=== PATIENT | female | born 1955 | race Caucasian/White ===

== ENCOUNTER → 2018-07-27 08:10 | Outpatient (CLI) | payer MEDICARE, OTHER, SELFPAY ==
--- NOTE | 2018-07-27 | DI.MG.S_ITS ---
BILATERAL DIGITAL SCREENING MAMMOGRAM 3D/2D WITH CAD: 07/27/2018 CLINICAL: Routine screening. Family history of breast cancer. Comparison is made to exams dated: 07/17/2017 mammogram, 07/06/2016 mammogram, and 12/02/2014 mammogram - [facility]. The tissue of both breasts is predominantly fatty. Current study was also evaluated with a Computer Aided Detection (CAD) system. No significant masses, calcifications, or other findings are seen in either breast. There has been no significant interval change. IMPRESSION: NEGATIVE There is no mammographic evidence of malignancy. A 1 year screening mammogram is recommended. This exam was interpreted at Station ID: [id number]. NOTE: For mammograms, a report in lay terms will be sent to the patient. Approximately 15% of breast malignancies will not be visualized mammographically. In the management of a palpable breast mass, a negative mammogram must not discourage biopsy of a clinically suspicious lesion. Electronically Signed By: Otilia gómez/bri:07/29/2018 08:18:49 letter sent: Normal Exam ACR BI-RADS Category 1: Negative [id number]
== END ==
PROVIDERS: Visit Provider Family Medicine
DX: Z12.31 Encounter for screening mammogram for malignant neoplasm of breast (principal); Z80.3 Family history of malignant neoplasm of breast
CPT/HCPCS: 77063; 77067

== ENCOUNTER → 2018-08-08 08:46 | Outpatient (CLI) | payer MEDICARE, OTHER, SELFPAY ==
[2018-08-08 09:13] LABS: Add Manual Diff / Slide Review NO; Basophils Percent Auto 0.5 % (0-2); Eosinophils Percent Auto 1.4 % (2-4); Hematocrit 39.3 % (36-46); Hemoglobin 13.3 g/dL (12.0-16.0); Lymphocytes Percent Auto 25.6 % (25-40); Mean Corpuscular HGB Conc 33.8 % (30-36); Mean Corpuscular Hemoglobin 29.4 PG (26-34); Monocytes Percent Auto 9.4 % (3-14); Neutrophils Absolute Auto 3500 /uL (3000-5900); Neutrophils Percent Auto 63.1 % (50-75); Platelet Count 233 X10^3/uL (150-400); Red Blood Cell Count 4.52 X10^6/uL (4.0-5.2); White Blood Cell Count 5.6 X10^3/uL (4.5-11.0)
[2018-08-08 09:30] LABS: Alanine Aminotransferase 60 IU/L (9-52); Albumin 4.4 g/dL (3.5-5.0); Albumin Globulin Ratio 1.4 (1.0-2.8); Alkaline Phosphatase 84 U/L (38-126); Aspartate Aminotransferase 49 IU/L (14-36); BUN Creatinine Ratio 25.6 (6-22); Bilirubin Total 0.9 mg/dL (0.2-1.3); Blood Urea Nitrogen 23 mg/dL (7-17); Calcium 9.9 mg/dL (8.4-10.2); Carbon Dioxide 28 mmol/L (22-32); Chloride 106 mmol/L (98-107); Cholesterol 148 mg/dL (140-199); Estimated Glomerular Filt Rate > 60.0 mL/min (>60); Globulin 3.1 g/dL (1.7-4.1); Glucose 101 mg/dL (80-110); HDL Cholesterol 64 mg/dL (40-60); HEMOLYSIS < 15 (0-50); LDL Cholesterol Calculated 68 mg/dL (<100); Potassium 4.7 mmol/L (3.4-5.1); Sodium 145 mmol/L (137-145); Total Protein 7.5 g/dL (6.3-8.2); Triglycerides 78 mg/dL (35-150)
[2018-08-08 09:33] LABS: Hemoglobin A1C% w Est Avg Glu 5.8 % (4.0-6.0)
[2018-08-08 09:44] LABS: Creatinine Urine Random 162.1 mg/dL
[2018-08-08 10:09] LABS: Microalbumi Creatinin Ratio Ur 3.7 ug/mg CR (<30); Microalbumin Urine Random < 0.6 mg/dL (0-1.6)
[2018-08-08 10:12] LABS: Thyroid Stimulating Hormone 3.82 uIU/mL (0.47-4.68)
== END ==
PROVIDERS: PCP Registered Nurse; Visit Provider Registered Nurse
DX: E66.9 Obesity, unspecified (principal); E78.2 Mixed hyperlipidemia; R06.02 Shortness of breath; I10 Essential (primary) hypertension
CPT/HCPCS: 36415; 80053; 80061; 82043; 82570; 83036; 84443; 85025

== ENCOUNTER → 2018-08-13 16:15 | Outpatient (CLI) | payer MEDICARE, OTHER, SELFPAY ==
--- NOTE | 2018-08-16 07:59 | PM.PFT.1 ---
Pulmonary Function Test Referral & Results Date Patient Seen: 08/13/18 Requesting provider: Ct Holloway Results: The spirometry demonstrates an FVC of 2.84 L which is 93% of predicted. The FEV1 was measured at 2.12 L which is 91% of predicted. The FEV1/FVC ratio was 70 for which is 96% of predicted. Following the administration of bronchodilator there was no appreciable change. Lung volumes show an SVC of 3.04 L which is 106% of predicted. The diffusing capacity was measured at 22.96 which is 100% of predicted. The maximum voluntary ventilation was normal Interpretation: This study demonstrates probably normal pulmonary function. There is very minimal reduction in FEV1 and a very minimal curve to the flow volume loop suggesting at worst extremely mild obstructive lung disease. Clinical correlation suggested
== END ==
PROVIDERS: PCP Registered Nurse; Visit Provider Registered Nurse
DX: R06.02 Shortness of breath (principal)
CPT/HCPCS: 94010; 94060; 94726; 94729

== ENCOUNTER → 2018-08-28 08:12 | Outpatient (CLI) | payer MEDICARE, OTHER, SELFPAY ==
--- NOTE | 2018-08-28 08:14 | DI.NM.S_ITS ---
PROCEDURE: NM FRANK PERF SPECT REST & STR Rest and exercise myocardial perfusion SPECT with gated imaging and ejection fraction RADIOPHARMACEUTICAL: 27.2 mCi Tc-99m sestamibi IV at rest and 24.8 mCi Tc-99m sestamibi IV at peak exercise. A two day-protocol was performed. INDICATIONS: dyspnea on exertion TECHNIQUE: Radiopharmaceutical was injected at peak stress test, and also at rest. SPECT images were obtained. SPECT myocardial perfusion images were displayed in short axis, horizontal long axis, and vertical long axis views. Gated images were reviewed using [employer]ogolf[employer] software. COMPARISON: None. CARDIAC STRESS: A standard Paulo treadmill exercise tolerance test was performed by the patient under the supervision of an attending staff. The patient exercised for 4 minutes and 10 seconds reaching 7.0 METs; functional aerobic impairment (LUIS) is +18%. Hemodynamic data: There is normal blood pressure and heart rate response to exercise stress. Patient achieved 100% of maximum predicted heart rate at peak exercise. Symptoms: Patient denied chest pain during exercise. Study ended due to dyspnea. EKG: No diagnostic EKG changes of ischemia; no ectopy. FINDINGS: Raw data: There is good myocardial labeling by radiotracer. No significant motion artifacts. Degq-gv-slqnk ratio is 0.34 (normal is less than 0.38 for sestamibi tracer, and less than 0.50 for thallium tracer). Left ventricle function: Gated images demonstrate normal left ventricle wall thickening. No segmental wall motion abnormality. No transient ischemic dilation; TID is 0.91 (normal less than 1.3). The left ventricle resting end-diastolic volume is 66 mL. Left ventricle stress ejection fraction is 88%; normal values are above 45%. Myocardial perfusion: There is normal distribution of activity in the left and right ventricular myocardium. No fixed or reversible perfusion defects. IMPRESSION: Low risk, normal treadmill nuclear stress test. 1) No perfusion evidence of ischemia or infarction. 2) Normal left ventricular size, wall motion, and systolic function (EF 88%). 3) No ECG evidence of ischemia. 4) No angina during the study. Study ended due to dyspnea. 5) Below average exercise capacity (7.0 METs, LUIS +18%). Target heart rate achieved. Appropriate blood pressure response to exercise. 6) No prior nuclear stress test available for comparison. Dictated by: Zia Barrios MD on 08/29/2018 at 18:57 Approved by: Zia Barrios MD on 08/29/2018 at 19:00
--- NOTE | 2018-08-28 08:14 | DI.ECHO.S_ITS ---
[facility] +---------+ : : [address] : : : : [id number] : : : : Phone: [phone] Echocardiogram Report + + :Name: AMANDA KIMBLE Study Date: 08/28/2018 Height: 63 in : :[facility] Weight: 221 lb : : Gender: Female BSA: 2.0 m2 : :: 1955 Age: 63 yrs BP: 124/78 mmHg: :Reason For Study: Dyspnea : : Performed By: Amy Russell : :Referring: CORINA BUENO : + + Interpretation Summary The left ventricle is normal in size. Left ventricular wall thickness is borderline increased. The ejection fraction is estimated to be 60-65%. Left ventricular wall motion is normal. The right ventricle grossly appears normal in size with visually normal systolic function. No significant valvular abnormalities. -Overall this echo shows normal biventricular function and no significant valvular abnormalities. The etiology of dyspnea can not be determined based on this echo. -No prior echos for comparison. Procedure: A two-dimensional transthoracic echocardiogram with color flow and Doppler was performed. The study quality was technically good. There is no prior echocardiogram noted for this patient. The patient was in normal sinus rhythm during the exam. Left Ventricle: The left ventricle is normal in size. Left ventricular wall thickness is borderline increased. The ejection fraction is estimated to be 60-65%. Left ventricular wall motion is normal. Diastolic parameters suggest a relaxation abnormality of the left ventricle, consistent with probable normal filling pressures. Right Ventricle: The right ventricle grossly appears normal in size with probable normal systolic function. Atria: The left atrial size is normal. Right atrial size is normal. The interatrial septum is intact with no evidence for an atrial septal defect. Mitral Valve: The mitral valve is normal in structure and function. There is no mitral regurgitation noted. Aortic Valve: The aortic valve is trileaflet. The aortic valve opens well. There is no aortic valve stenosis. No aortic regurgitation is present. Tricuspid Valve: The tricuspid valve is normal in structure and function. There is a trace or physiologic amount of tricuspid regurgitation. Pulmonary artery pressures cannot be estimated because of the lack of a measurable TR jet velocity but the IVC suggests a CVP of around 3 mmHg. Pulmonic Valve: The pulmonic valve is not well seen, but is grossly normal. There is trace pulmonic regurgitation. Great Vessels: The aortic root is normal size. The dimensions of the ascending aorta are normal. The IVC is of normal diameter and collapses greater than 50% with a sniff. This suggests a low right atrial pressure of 3 mm Hg. Pericardium/ Pleura There is no pericardial effusion. There is no pleural effusion. MMode/2D Measurements & Calculations LVIDd: 4.5 cm Ao root diam: 3.3 cm LVIDs: 2.9 cm Aortic Jxn: 2.9 cm FS: 35.2 % asc Aorta Diam: 3.3 cm EPSS: 0.67 cm Ao Arch Diam (Prox Trans): 2.6 cm IVSd: 0.88 cm LVPWd: 0.81 cm LV cox. diameter/BSA (cm/m^2): 2.2 LV sys. diameter/BSA (cm/m^2): 1.4 LA dimension: 3.4 cm RA long axis: 5.0 cm LA A2 area: 18.9 cm2 RA area: 16.8 cm2 LA A4 area: 22.6 cm2 RA vol: 47.8 ml LA length (vol): 5.7 cm RA : 23.7 ml/m2 LA vol: 63.3 ml IVC diam: 1.3 cm LA vol index: 31.4 ml/m2 RVDd major: 4.5 cm RVD1 (basal): 2.8 cm RVD2 (mid): 2.2 cm Doppler Measurements & Calculations Ao V2 max: 149.4 cm/sec MV E max alan: 89.1 cm/sec Ao V2 mean: 93.5 cm/sec MV A max alan: 107.6 cm/sec Ao max P.9 mmHg MV E/A: 0.83 Ao mean P.1 mmHg Med Peak E' Alan: 7.8 cm/sec Ao V2 VTI: 30.6 cm E/E' med: 11.4 Lat Peak E' Alan: 9.1 cm/sec E/E' lat: 9.8 E/e' average: 10.6 MV dec time: 0.22 sec MV P1/2t: 65.5 msec TR max alan: 251.9 cm/sec MV P1/2t max alan: 88.6 cm/sec TR max P.4 mmHg MVA(P1/2t): 3.4 cm2 PA V2 max: 95.3 cm/sec PA V2 mean: 59.2 cm/sec PA mean P.7 mmHg PA Accel Time: 0.11 sec Electronically signed by: Vishnu Mir M.D. on Reading Physician:08/28/2018 08:01 PM
--- NOTE | 2018-08-28 09:27 | PM.TREADMILL ---
Cardiac Stress Test Report Referral & Results Date Patient Seen: 08/28/18 Requesting provider: Ct Holloway Indication: Dyspnea upon exertion Rest ECG: Unremarkable Procedure Note: Today following both written and verbal informed consent the patient was exercised according to a standard Paulo protocol patient went for a total of 4 min 10 sec achieving a maximum heart rate of 155 maximum systolic blood pressure of 160. This is approximately 7.0 METS. Exercise was terminated at this point because of 3+ dyspnea. Patient was also given Cardiolite through a previously started Hep-Lock IV by the mold maintenance technician approximately 1 minute prior to the cessation of exercise. There were no ST-T segment changes Somewhat blunted blood pressure response Normal heart rate response Single PVC identified in recovery Oxygen saturation dropped somewhat at 88-90% range or so with activity Functional aerobic impairment rated about percent on the sedentary scale Impression: No evidence of ischemia Mild hypoxia identified Perfusion imaging will be reported separately Please note: Actual ECG tracings can be found in the PACS system.
== END ==
PROVIDERS: PCP Registered Nurse; Visit Provider Registered Nurse
DX: R06.09 Other forms of dyspnea (principal); R09.02 Hypoxemia
CPT/HCPCS: 78452; 93016; 93017; 93018; 93306; A9502

== ENCOUNTER → 2018-09-05 10:53 | Outpatient (CLI) | payer MEDICARE, OTHER, SELFPAY ==
[2018-09-05 12:34] LABS: Alanine Aminotransferase 29 IU/L (9-52); Albumin 4.8 g/dL (3.5-5.0); Albumin Globulin Ratio 1.6 (1.0-2.8); Alkaline Phosphatase 63 U/L (38-126); Aspartate Aminotransferase 30 IU/L (14-36); BUN Creatinine Ratio 25.6 (6-22); Bilirubin Total 0.9 mg/dL (0.2-1.3); Blood Urea Nitrogen 23 mg/dL (7-17); Calcium 9.8 mg/dL (8.4-10.2); Carbon Dioxide 28 mmol/L (22-32); Chloride 98 mmol/L (98-107); Estimated Glomerular Filt Rate > 60.0 mL/min (>60); Glucose 85 mg/dL (80-110); HEMOLYSIS < 15 (0-50); Potassium 3.9 mmol/L (3.4-5.1); Sodium 140 mmol/L (137-145); Total Protein 7.8 g/dL (6.3-8.2)
== END ==
PROVIDERS: PCP Registered Nurse; Visit Provider Registered Nurse
DX: I10 Essential (primary) hypertension (principal)
CPT/HCPCS: 80053

== ENCOUNTER 2018-09-05 19:36 | Emergency (ER) | payer MEDICARE, OTHER, SELFPAY ==
[2018-09-05 19:47] VITALS: BP 163/93; PULSE 91; RESP 17; TEMP 36.4; O2SAT 100; BMI 36.3
--- NOTE | 2018-09-05 19:57 | DI.CT.S_ITS ---
PROCEDURE: CT ANGIO CHEST PE PROTOCOL INDICATIONS: Shortness of breath with exertion TECHNIQUE: After the administration of intravenous contrast, 2 mm thick sections acquired from the pulmonary apices to the posterior costophrenic angles. 3-dimensional maximum intensity projection (MIP) coronal and sagittal reformats were then acquired through the thorax. For radiation dose reduction, the following was used: automated exposure control, adjustment of mA and/or kV according to patient size. COMPARISON: [facility], , CHEST 2 VIEW, 01/28/2015, 14:06. FINDINGS: Image quality: Excellent. Pulmonary arteries: Pulmonary arteries are normal in size, and demonstrate no intraluminal filling defects to suggest central pulmonary embolism. Lungs and pleura: Lungs are clear. No pleural effusions or pneumothorax. Central and peripheral airways are patent. Mediastinum: Heart size is normal, without pericardial effusion. No mediastinal or hilar adenopathy. Thoracic aorta is normal in caliber and enhancement. Esophagus is normal in caliber, without hiatal hernia. Bones and chest wall: No suspicious bony lesions. Ribs and thoracic spine appear intact throughout. Thyroid gland is unremarkable. No axillary or supraclavicular adenopathy. Abdomen: Visualized upper abdominal solid organs appear normal in the early arterial phase of enhancement. IMPRESSION: 1. No pulmonary embolism. 2. Lungs are clear. Dictated by: Linh Reilly M.D. on 09/05/2018 at 20:51 Approved by: Linh Reilly M.D. on 09/05/2018 at 20:53
--- NOTE | 2018-09-05 20:06 | ED_ITS ---
HPI - Chest Pain General Chief Complaint: Chest Pain Stated Complaint: SOB and chest pain Time Seen by Provider: 09/05/18 19:45 Source: patient and old records reviewed Mode of arrival: ambulatory Limitations: no limitations History of Present Illness HPI narrative: The patient is a 63-year-old female presenting with shortness of breath. She has increased dyspnea with exertion ongoing for the last 2 weeks. She has been seen by her primary care provider started on hydrochlorothiazide she has had a pulmonary function test the past and nuclear stress test all of which have been negative. She denies fever chills. She has a nonproductive cough. She denies any recent travel although she is supposed to be leaving for [place] next week. She feels it hurts when she takes a breath and she can 't get a deep breath. His she quit smoking back in 1997. MD complaint: other (Dyspnea) Related Data Home Medications Medication Instructions Recorded Confirmed ascorbate calcium 500 mg tablet 500 mg PO DAILY 08/13/18 08/27/18 cholecalciferol (vitamin D3) PO 08/13/18 08/27/18 coq10 PO 08/13/18 08/27/18 garcinea cambogia PO 08/13/18 08/27/18 Previous Rx's Medication Instructions Recorded varicella-zoster gE-AS01B (PF) 0.5 ml IM SEE INSTRUCTIONS #1 ea 02/14/18 [Shingrix (PF)] hydrochlorothiazide 25 mg tablet 25 mg PO DAILY #90 tab 08/13/18 lisinopril 20 mg tablet 20 mg PO QDAY #90 tab 08/13/18 metoprolol succinate ER 25 mg 25 mg PO QDAY #90 tab 08/13/18 tablet,extended release 24 hr salmeterol 50 mcg/dose blister 1 inhalation INHALATION BID #60 09/03/18 powder for inhalation each albuterol sulfate 1 puff INHALATION Q4-6H PRN #8 gram 09/05/18 Allergies Allergy/AdvReac Type Severity Reaction Status Date / Time cat dander [CAT DANDER] Allergy Mild EYES SWELL Verified 09/05/18 19:47 SHUT Review of Systems Review of Systems All systems reviewed & are unremarkable except as noted in HPI and below Constitutional Denies chills, Denies fever(s), Denies lethargy, Denies weakness and Reports weight loss (10 pounds over 3 weeks started on hydrochlorothiazide) Eyes Denies change in vision, Denies eye discharge, Denies irritation and Denies loss of vision Cardiovascular Denies chest pain, Denies pedal edema, Denies irregular heart rhythm, Denies lightheadedness, Denies palpitations, Reports dyspnea, Reports dyspnea on exertion and Denies orthopnea Respiratory Reports as per HPI, Denies change in phlegm color, Reports dyspnea and Reports dyspnea on exertion Gastrointestinal Gastrointestinal: Denies abdominal pain, Denies change in bowel habits, Denies diarrhea, Denies nausea and Denies vomiting Musculoskeletal Denies back pain, Denies muscle weakness, Denies numbness and Denies tingling Integumentary/Breasts Denies pruritus, Denies erythema, Denies rash and Denies wounds Neurologic Denies loss of vision, Denies numbness, Denies tingling and Denies weakness Endocrine Denies palpitations [facility] Medical History Cervical spine disease (Chronic) Chronic back pain (Chronic) Chronic headaches (Chronic) Hypertension (Chronic 2003) Migraines (Chronic) Abnormal Pap smear of cervix (Resolved 1994) Colon polyps (Resolved 2005) HPV (human papilloma virus) infection (Resolved 1994) SCC (squamous cell carcinoma), lip (Resolved 2008) Surgical History Anesthesia (Resolved) History of colonoscopy (Resolved 2010) History of cone biopsy of uterine cervix (Resolved 1994) History of squamous cell carcinoma excision (Resolved 2008) History of tonsillectomy (Resolved 1982) Status post breast biopsy (Resolved 1996) Status post hysterectomy with oophorectomy (Resolved 2002) Family History Grandmother Cancer Colon cancer Brother Diabetes mellitus Cystic fibrosis gene carrier Cystic fibrosis Father Prostate cancer Stroke Dysphagia Grandfather Heart disease Grandmother Heart disease Mother Cancer Uterine cancer Adenocarcinoma, lung Grandfather Stroke Sister Cystic fibrosis Cystic fibrosis gene carrier Social History Smoking Status: Former smoker Exam Initial Vital Signs Initial Vital Signs: Vital Signs Temperature 97.5 F L 09/05/18 19:47 Pulse Rate 91 H 09/05/18 19:47 Respiratory Rate 17 09/05/18 19:47 Blood Pressure 163/93 H 09/05/18 19:47 Pulse Oximetry 100 09/05/18 19:47 GENERAL: Well-appearing, well-nourished and in no acute distress. HEENT: Head atraumatic,EOMI, pupils reactive, face symmetric, moist mucous membranes CARDIOVASCULAR: Regular rate and rhythm without murmurs, rubs or gallops. RESPIRATORY: Breath sounds equal bilaterally, no wheezes rales or rhonchi. ABDOMEN: Soft, nontender. Normoactive bowel sounds all 4 quadrants. No guarding or rebound. EXTREMITIES: Normal range of motion, no clubbing or edema. Neurovascularly intact NEUROLOGICAL: Alert and oriented x4.Normal gait and speech. Cranial nerves II through XII grossly intact. SKIN: Warm, dry, no laceration, no petechiae, no rashes or lesions. Course Orders Ordered: ED Orders 09/05/18 19:44 B Type Natriuretic Peptide Stat Complete Blood Count AUTO DIFF Stat Comprehensive Metabolic Panel Stat Magnesium Stat Partial Thromboplastin Time Stat Prothrombin Time INR Stat Troponin & CK Cardiac Panel Stat 09/05/18 19:56 Consult to Respiratory Therapy Evaluate & Treat 09/05/18 19:57 CT angio chest PE protocol Stat Discontinued Medications Albuterol (Ventolin Hfa Prepack) 1 box MISC SEEINSTR ONE Stop: 09/05/18 21:23 Last Admin: 09/05/18 21:26 Dose: 1 box Albuterol/Ipratropium (Duoneb) 3 ml INH NOW ONE Stop: 09/05/18 20:59 Last Admin: 09/05/18 21:16 Dose: 3 ml Vital Signs - 8 hr 09/05/18 19:47 09/05/18 20:30 09/05/18 21:16 Temperature 97.5 F L Pulse Rate 91 H 84 76 Respiratory Rate 17 20 16 Blood Pressure 163/93 H Blood Pressure [Left Arm] 139/72 Pulse Oximetry 100 100 100 09/05/18 21:44 Temperature 97.6 F Pulse Rate 81 Respiratory Rate 20 Blood Pressure 123/82 Blood Pressure [Left Arm] Pulse Oximetry 96 MDM - Chest Pain Lab Data Attestation: I reviewed the patient's lab results. Result diagrams: 09/05/18 19:44 09/05/18 19:44 Lab Results 09/05/18 09/05/18 09/05/18 Range/Units 19:44 19:44 19:44 WBC 9.2 (4.5-11.0) X10^3/uL RBC 4.80 (4.0-5.2) X10^6/uL Hgb 13.6 (12.0-16.0) g/dL Hct 41.7 (36-46) % MCV 86.9 (80-100) fL MCH 28.4 (26-34) PG MCHC 32.7 (30-36) % RDW 13.8 (11.6-14.8) % Plt Count 232 (150-400) X10^3/uL Neut % (Auto) 56.4 (50-75) % Lymph % (Auto) 32.3 (25-40) % Bullitt % (Auto) 9.5 (3-14) % Eos % (Auto) 0.9 L (2-4) % Baso % (Auto) 0.9 (0-2) % Neut # (Auto) 5200 (6478-6691) /uL PT 11.1 (10.1-12.7) SECONDS INR 1.0 (0.9-1.3) APTT 29 (26.4-36.2) SECONDS Sodium 139 (137-145) mmol/L Potassium 3.5 (3.4-5.1) mmol/L Chloride 101 (98-107) mmol/L Carbon Dioxide 22 (22-32) mmol/L BUN 31 H (7-17) mg/dL Creatinine 1.00 (0.52-1.04) mg/dL Estimated GFR 55.6 L (>60) mL/min BUN/Creatinine Ratio 31.0 H (6-22) Glucose 102 (80-110) mg/dL Calcium 10.1 (8.4-10.2) mg/dL Magnesium 2.3 (1.6-2.3) mg/dL Total Bilirubin 0.6 (0.2-1.3) mg/dL AST 31 (14-36) IU/L ALT 33 (9-52) IU/L Alkaline Phosphatase 82 (38-126) U/L Total Creatine Kinase 95 (30-135) U/L CK-MB (CK-2) TNP CK-MB (CK-2) Rel Index TNP Troponin I < 0.012 (0.01-0.034) ng/mL B-Natriuretic Peptide < 29.6 (<100) Total Protein 8.0 (6.3-8.2) g/dL Albumin 4.8 (3.5-5.0) g/dL Globulin 3.2 (1.7-4.1) g/dL Albumin/Globulin Ratio 1.5 (1.0-2.8) Imaging Data CT PE: Radiologist's impression: PROCEDURE: CT ANGIO CHEST PE PROTOCOL INDICATIONS: Shortness of breath with exertion TECHNIQUE: After the administration of intravenous contrast, 2 mm thick sections acquired from the pulmonary apices to the posterior costophrenic angles. 3-dimensional maximum intensity projection (MIP) coronal and sagittal reformats were then acquired through the thorax. For radiation dose reduction, the following was used: automated exposure control, adjustment of mA and/or kV according to patient size. COMPARISON: [facility], CHEST 2 VIEW, 01/28/2015, 14:06. FINDINGS: Image quality: Excellent. Pulmonary arteries: Pulmonary arteries are normal in size, and demonstrate no intraluminal filling defects to suggest central pulmonary embolism. Lungs and pleura: Lungs are clear. No pleural effusions or pneumothorax. Central and peripheral airways are patent. Mediastinum: Heart size is normal, without pericardial effusion. No mediastinal or hilar adenopathy. Thoracic aorta is normal in caliber and enhancement. Esophagus is normal in caliber, without hiatal hernia. Bones and chest wall: No suspicious bony lesions. Ribs and thoracic spine appear intact throughout. Thyroid gland is unremarkable. No axillary or supraclavicular adenopathy. Abdomen: Visualized upper abdominal solid organs appear normal in the early arterial phase of enhancement. IMPRESSION: 1. No pulmonary embolism. 2. Lungs are clear. Dictated by: Linh Reilly M.D. on 09/05/2018 at 20:51 Echocardiogram 08/28/18: Radiologist's impression: Name: AMANDA KIMBLE Study Date: 2017 Height: 63 in : :[facility] Weight: 221 lb : : Gender: Female BSA: 2.0 m2 : :: 1955 Age: 63 yrs BP: 124/78 mmHg: :Reason For Study: Dyspnea : : Performed By: Amy Russell : :Referring: CORINA BUENO : + + Interpretation Summary The left ventricle is normal in size. Left ventricular wall thickness is borderline increased. The ejection fraction is estimated to be 60-65%. Left ventricular wall motion is normal. The right ventricle grossly appears normal in size with visually normal systolic function. No significant valvular abnormalities. -Overall this echo shows normal biventricular function and no significant valvular abnormalities. The etiology of dyspnea can not be determined based on this echo. -No prior echos for comparison. Myocardial perfusion scan 08/28/18: Radiologist's impression: IMPRESSION: Low risk, normal treadmill nuclear stress test. 1) No perfusion evidence of ischemia or infarction. 2) Normal left ventricular size, wall motion, and systolic function (EF 88%). 3) No ECG evidence of ischemia. 4) No angina during the study. Study ended due to dyspnea. 5) Below average exercise capacity (7.0 METs, LUIS +18%). Target heart rate achieved. Appropriate blood pressure response to exercise. 6) No prior nuclear stress test available for comparison. Dictated by: Zia Barrios MD on 08/29/2018 at 18:57 ECG Data Attestation: I personally reviewed and interpreted this ECG as follows: Prior ECG tracings: not available for review Interpretation: Sinus rhythm rate 89 T-wave inversions noted in V3 and V6 MDM Narrative Medical decision making narrative: The patient had an albuterol treatment. She feels slightly better. She was more anxious that she may have lung cancer like her mother did. His she has had a full workup within 1 week. Possible pleurisy , versus reactive airway disease, possible pulmonary hypertension. Recommend further outpatient workup I discussed all findings with the patient and spouse, Education has been performed regarding treatment plan, diagnosis, warning signs and symptoms and all concerns have been addressed. Verbally agree with and understood all of the above. Discharge Plan Departure Patient Disposition: Home Clinical Impression: Exacerbation of reactive airway disease Discharge Date/Time: 09/05/18 21:45 Interventions: ED Discharge Assessment Last Done: 09/05/18 21:44 Instructions: DI for Reactive Airway Disease-Adult Activity Restrictions/Additional Instructions: *You have been diagnosed with reactive airway *What to do: Blood work today is again reassuring. CT scan of the chest did not show any masses or blood clot. *Continue to take medications as directed Albuterol inhaler 2 puffs every 4 hr if needed for chest tightness or shortness of breath *Follow up with your primary care provider in 2-3 days *Return to ER if you should have chest pain, worse shortness of breath or any new, worsening or concerning symptoms Prescriptions: New albuterol sulfate 90 mcg/actuation HFA aerosol inhaler 1 puff INHALATION Q4-6H PRN (Reason: wheezing) Qty: 8 RF: 0 No Action varicella-zoster gE-AS01B (PF) [Shingrix (PF)] 50 MCG/0.5 ML suspension for reconstitution 0.5 ml IM SEE INSTRUCTIONS Qty: 1 RF: 1 salmeterol [Serevent Diskus] 50 mcg/dose blister with device 1 inhalation INHALATION BID Qty: 60 RF: 0 coq10 PO RF: 0 ascorbate calcium 500 mg tablet 500 mg PO DAILY RF: 0 cholecalciferol (vitamin D3) PO RF: 0 garcinea cambogia PO RF: 0 lisinopril 20 mg tablet 20 mg PO QDAY Qty: 90 RF: 3 hydrochlorothiazide 25 mg tablet 25 mg PO DAILY Qty: 90 RF: 2 metoprolol succinate [Toprol XL] 25 mg tablet extended release 24 hr 25 mg PO QDAY Qty: 90 RF: 3
[2018-09-05 20:09] LABS: Add Manual Diff / Slide Review NO; Basophils Percent Auto 0.9 % (0-2); Eosinophils Percent Auto 0.9 % (2-4); Hematocrit 41.7 % (36-46); Hemoglobin 13.6 g/dL (12.0-16.0); Lymphocytes Percent Auto 32.3 % (25-40); Mean Corpuscular HGB Conc 32.7 % (30-36); Mean Corpuscular Hemoglobin 28.4 PG (26-34); Mean Corpuscular Volume 86.9 fL (80-100); Monocytes Percent Auto 9.5 % (3-14); Neutrophils Absolute Auto 5200 /uL (3000-5900); Neutrophils Percent Auto 56.4 % (50-75); Platelet Count 232 X10^3/uL (150-400); Red Cell Distribution Width 13.8 % (11.6-14.8); White Blood Cell Count 9.2 X10^3/uL (4.5-11.0)
[2018-09-05 20:15] LABS: Prothrombin Time 11.1 SECONDS (10.1-12.7)
[2018-09-05 20:18] LABS: Alanine Aminotransferase 33 IU/L (9-52); Albumin 4.8 g/dL (3.5-5.0); Albumin Globulin Ratio 1.5 (1.0-2.8); Alkaline Phosphatase 82 U/L (38-126); Aspartate Aminotransferase 31 IU/L (14-36); Bilirubin Total 0.6 mg/dL (0.2-1.3); Blood Urea Nitrogen 31 mg/dL (7-17); Calcium 10.1 mg/dL (8.4-10.2); Carbon Dioxide 22 mmol/L (22-32); Chloride 101 mmol/L (98-107); Creatine Kinase 95 U/L (30-135); Estimated Glomerular Filt Rate 55.6 mL/min (>60); Globulin 3.2 g/dL (1.7-4.1); Glucose 102 mg/dL (80-110); HEMOLYSIS 17 (0-50); Magnesium 2.3 mg/dL (1.6-2.3); PTT Partial Thromboplastin Tim 29 SECONDS (26.4-36.2); Potassium 3.5 mmol/L (3.4-5.1); Sodium 139 mmol/L (137-145)
[2018-09-05 20:29] LABS: Troponin I < 0.012 ng/mL (0.01-0.034)
[2018-09-05 20:30] VITALS: BP 139/72; PULSE 84; RESP 20; O2SAT 100
[2018-09-05 20:32] LABS: B Type Natriuretic Peptide < 29.6 (<100)
[2018-09-05 21:16] VITALS: PULSE 76; RESP 16; O2SAT 100
[2018-09-05] MEDS: ALBUTEROL/IPRATROPIUM 3 ML AMPUL INH (21:16)
[2018-09-05] MEDS: ALBUTEROL HFA PREPACK 1 BOX MISC (21:26)
[2018-09-05 21:44] VITALS: BP 123/82; PULSE 81; RESP 20; TEMP 36.4; O2SAT 96
== END 2018-09-05 21:45 | disposition home or self-care (01) ==
PROVIDERS: Emergency Provider Emergency Medicine; PCP Registered Nurse
DX: J45.901 Unspecified asthma with (acute) exacerbation (principal); R07.89 Other chest pain; I10 Essential (primary) hypertension
CPT/HCPCS: 36591; 71275; 80053; 82550; 83735; 83880; 84484; 85025; 85610; 85730; 93005; 94640; 99282; 99285; Q9967

== ENCOUNTER → 2018-11-26 09:46 | Outpatient (CLI) | payer MEDICARE, OTHER, SELFPAY ==
[2018-11-26 10:31] LABS: Alanine Aminotransferase 53 IU/L (9-52); Albumin 4.7 g/dL (3.5-5.0); Albumin Globulin Ratio 1.3 (1.0-2.8); Alkaline Phosphatase 103 U/L (38-126); Aspartate Aminotransferase 39 IU/L (14-36); BUN Creatinine Ratio 22.2 (6-22); Bilirubin Total 0.8 mg/dL (0.2-1.3); Blood Urea Nitrogen 20 mg/dL (7-17); Calcium 10.2 mg/dL (8.4-10.2); Carbon Dioxide 29 mmol/L (22-32); Chloride 101 mmol/L (98-107); Cholesterol 197 mg/dL (140-199); Estimated Glomerular Filt Rate > 60.0 mL/min (>60); Globulin 3.5 g/dL (1.7-4.1); Glucose 104 mg/dL (80-110); HDL Cholesterol 69 mg/dL (40-60); HEMOLYSIS < 15 (0-50); LDL Cholesterol Calculated 114 mg/dL (<100); Potassium 3.8 mmol/L (3.4-5.1); Sodium 139 mmol/L (137-145); Total Protein 8.2 g/dL (6.3-8.2); Triglycerides 69 mg/dL (35-150)
== END ==
PROVIDERS: Family Provider Registered Nurse; PCP Registered Nurse; Visit Provider Registered Nurse
DX: I10 Essential (primary) hypertension (principal); E78.5 Hyperlipidemia, unspecified
CPT/HCPCS: 36415; 80053; 80061

== ENCOUNTER 2019-01-28 11:53 | Day surgery (SDC) | payer MEDICARE, OTHER, SELFPAY ==
[2019-01-28] VITALS (8 sets, daily range): BP systolic 96–127; BP diastolic 62–75; PULSE 59–82; RESP 12–20; TEMP 36.3–36.7; O2SAT 95–99
[2019-01-28] MEDS: SODIUM CHLORIDE 0.9% 1,000 ML 100 ML IV (12:11)
--- NOTE | 2019-01-28 13:16 | PM.HP.1 ---
History of Present Illness Date Patient Seen: 01/28/19 Time Patient Seen: 13:16 Chief complaint: [id number] Colonoscopy Narrative: Very pleasant 63-year-old lady who presents for screening colonoscopy. She reports that her last colonoscopy was 2010. At that time she did not have any polyps but in 2004 she had a colonoscopy and did have a couple benign polyps. She denies any new problems or symptoms related to the function of her GI tract. She reports that she has in her usual state of health. She has had some difficulty recently with asthma and has been seeing chief development officer. She denies any difficulty breathing today. Patient History Medical History Cervical spine disease (Chronic) Chronic back pain (Chronic) Chronic headaches (Chronic) Hypertension (Chronic 2003) Migraines (Chronic) Abnormal Pap smear of cervix (Resolved 1994) Colon polyps (Resolved 2005) HPV (human papilloma virus) infection (Resolved 1994) SCC (squamous cell carcinoma), lip (Resolved 2008) Surgical History Anesthesia (Resolved) History of colonoscopy (Resolved 2010) History of cone biopsy of uterine cervix (Resolved 1994) History of squamous cell carcinoma excision (Resolved 2008) History of tonsillectomy (Resolved 1982) Status post breast biopsy (Resolved 1996) Status post hysterectomy with oophorectomy (Resolved 2002) Family History Grandmother Cancer Colon cancer Brother Diabetes mellitus Cystic fibrosis gene carrier Cystic fibrosis Father Prostate cancer Stroke Dysphagia Grandfather Heart disease Grandmother Heart disease Mother Cancer Uterine cancer Adenocarcinoma, lung Grandfather Stroke Sister Cystic fibrosis Cystic fibrosis gene carrier Social History household members: spouse Smoking Status: Former smoker alcohol intake: current (occasionally) substance use type: does not use Family & Social History Family History Grandmother Cancer Colon cancer Brother Diabetes mellitus Cystic fibrosis gene carrier Cystic fibrosis Father Prostate cancer Stroke Dysphagia Grandfather Heart disease Grandmother Heart disease Mother Cancer Uterine cancer Adenocarcinoma, lung Grandfather Stroke Sister Cystic fibrosis Cystic fibrosis gene carrier Social History: household members spouse Tobacco & Substance use: Smoking Status Former smoker alcohol intake current alcohol intake frequency 0-2 drinks per day Substance Use Type does not use Meds Home Medications Medication Instructions Recorded Confirmed Type ascorbate calcium 500 mg tablet 500 mg PO DAILY 08/13/18 11/27/18 History cholecalciferol (vitamin D3) PO 08/13/18 11/27/18 History hydrochlorothiazide 25 mg tablet 25 mg PO DAILY #90 tab 08/13/18 11/27/18 Rx lisinopril 20 mg tablet 20 mg PO QDAY #90 tab 08/13/18 11/27/18 Rx albuterol sulfate 1 puff INHALATION Q4-6H PRN #8 gram 09/05/18 11/27/18 Rx metoprolol succinate ER 25 mg 12.5 mg PO QDAY tab 09/06/18 11/27/18 History tablet,extended release 24 hr Allergies Allergy/AdvReac Type Severity Reaction Status Date / Time cat dander [CAT DANDER] Allergy Mild EYES SWELL Verified 11/27/18 08:30 SHUT Review of Systems Review of Systems All systems reviewed & are unremarkable except as noted in HPI and below Exam Vital Signs (past 8 hours): - 01/28/19 12:14 Temperature 98 F Pulse Rate 82 Respiratory Rate 20 Blood Pressure 127/75 Pulse Oximetry 99 Oxygen Delivery Method Room Air Narrative Exam Narrative: Very pleasant well-nourished well-developed lady in no obvious distress HEENT: Normocephalic and atraumatic, pupils equal round react light accommodation with anicteric sclera lungs: Clear to auscultation bilaterally Heart: Regular rate rhythm without murmur rub or gallop abdomen: Soft, nontender, active bowel sounds extremities: Warm and well perfused and without edema Assessment & Plan Assessment & Plan narrative: Pleasant lady with a personal history of colon polyps who presents for screening colonoscopy. We discussed risks and benefits of the procedure with the patient the patient expressed a desire to complete it today.
[2019-01-28] MEDS: fentaNYL 250 MCG/5 ML INJ IV (13:23)
[2019-01-28] MEDS: MIDAZOLAM 5 MG/5 ML VIAL IV (13:23)
--- NOTE | 2019-01-28 13:45 | PM.OP.1 ---
Operative Date/Time/Diagnoses Date of procedure: 01/28/19 Time of procedure: 13:46 Pre-op diagnosis: Screening personal history of colon polyps Post-op diagnosis: same Procedure & Clinicians Procedure: colonoscopy to the cecum Same procedure as scheduled: Yes Indications: last colonoscopy 2010 Surgeon: Mary Hayes Click Yes if Unassisted: Yes Anesthesia Type: Sedation ( Versed 9 mg; fentanyl 200 mcg) Operative Notes Findings: 1. Adequate prep 2. No polyps or mass lesions 3. No AV malformations 4. very few diverticula limited to the sigmoid region with no evidence of inflammation 5. Normal mucosa throughout 6. Grade 1 internal hemorrhoids Closure Type: not applicable Specimen(s): none sent Procedure in detail: After obtaining informed consent, the patient was brought to the GI suite and placed in the left lateral decubitus position on the examination table. After placement of appropriate monitors, the patient was given incremental doses of Versed and Fentanyl until an appropriate level of sedation was achieved. A time out was held per SCOAP protocol. A digital rectal examination was performed and did not reveal any masses or obstructing lesions. The colonoscope was gently passed into the patient's anus and the entire colon navigated to the level of the cecum with minimal difficulty. Once in the cecum, the scope was withdrawn being sure to go before and beyond all mucosal folds and prominences and get an excellent examination. The findings are noted above. At the level of the rectal vault, the scope was retroflexed and the internal anal canal was examined. The scope was straightened and air aspirated from the colon. The instrument was removed from the patient's body and the procedure was concluded. The patient was allowed to awaken from sedation without difficulty and taken to the post-anesthesia care unit in good condition. total sedation time was 25 min total withdrawal time was 8 min Complications: none Condition: stable Disposition: PACU Plan for aftercare: 1. Discharge to home 2. Plan for next colonoscopy in 5 years or as clinically indicated due to the patient's history of polyps
== END 2019-01-28 14:58 | disposition home or self-care (01) ==
PROVIDERS: PCP Registered Nurse; Visit Provider Surgery
PROC: 0DJD8ZZ Inspection of Lower Intestinal Tract, Via Natural or Artificial Opening Endoscopic (ICD-10-PCS; CPT 45378; principal; 2019-01-28 13:00)
DX: Z86.010 Personal history of colon polyps (principal); K64.0 First degree hemorrhoids; I10 Essential (primary) hypertension; Z87.891 Personal history of nicotine dependence
CPT/HCPCS: G0105; 99152; 99153; J2250; J3010

== ENCOUNTER → 2019-08-13 11:09 | Outpatient (CLI) | payer MEDICARE, OTHER, SELFPAY ==
--- NOTE | 2019-08-13 | DI.MG.S_ITS ---
BILATERAL DIGITAL SCREENING MAMMOGRAM 3D/2D WITH CAD: 08/13/2019 CLINICAL: Routine screening. Family history of breast cancer. Comparison is made to exams dated: 07/27/2018 mammogram, 07/17/2017 mammogram, and 07/06/2016 mammogram - [facility]. There are scattered fibroglandular elements in both breasts. Current study was also evaluated with a Computer Aided Detection (CAD) system. No significant masses, calcifications, or other findings are seen in either breast. There has been no significant interval change. IMPRESSION: NEGATIVE There is no mammographic evidence of malignancy. A 1 year screening mammogram is recommended. This exam was interpreted at Station ID: [id number]. NOTE: For mammograms, a report in lay terms will be sent to the patient. Approximately 15% of breast malignancies will not be visualized mammographically. In the management of a palpable breast mass, a negative mammogram must not discourage biopsy of a clinically suspicious lesion. Electronically Signed By: Ramesh jerome/bri:08/13/2019 11:54:43 letter sent: Normal Exam ACR BI-RADS Category 1: Negative 3341F
== END ==
PROVIDERS: PCP Registered Nurse; Visit Provider Registered Nurse
DX: Z12.31 Encounter for screening mammogram for malignant neoplasm of breast (principal); Z80.3 Family history of malignant neoplasm of breast
CPT/HCPCS: 77063; 77067

== ENCOUNTER → 2020-07-15 08:31 | Outpatient (CLI) | payer MEDICARE, OTHER, SELFPAY ==
[2020-07-16 18:00] LABS: COVID19 Sendout Not Detected (Not Detected)
== END ==
PROVIDERS: PCP Registered Nurse; Visit Provider Physician Assistant
DX: Z11.59 Encounter for screening for other viral diseases (principal)
CPT/HCPCS: 87635

== ENCOUNTER → 2020-08-05 07:19 | Outpatient (CLI) | payer MEDICARE, OTHER, SELFPAY ==
[2020-08-05 07:40] LABS: Add Manual Diff / Slide Review NO; Basophils Absolute Auto 100 /uL (0-100); Basophils Percent Auto 1.4 % (0-2); Eosinophils Absolute Auto 100 /uL (0-450); Eosinophils Percent Auto 1.7 % (2-4); Hematocrit 39.9 % (36-46); Hemoglobin 13.3 g/dL (12.0-16.0); Lymphocytes Absolute Auto 1600 /uL (1100-4500); Lymphocytes Percent Auto 29.4 % (25-40); Mean Corpuscular HGB Conc 33.3 % (30-36); Mean Corpuscular Volume 87.1 fL (80-100); Monocytes Absolute Auto 600 /uL (0-900); Monocytes Percent Auto 10.9 % (3-14); Neutrophils Absolute Auto 3000 /uL (1500-7000); Neutrophils Percent Auto 56.6 % (50-75); Platelet Count 264 X10^3/uL (150-400); Red Blood Cell Count 4.58 X10^6/uL (4.0-5.2); Red Cell Distribution Width 13.9 % (11.6-14.8); White Blood Cell Count 5.4 X10^3/uL (4.5-11.0)
[2020-08-05 07:53] LABS: Alanine Aminotransferase 28 IU/L (<35); Albumin 4.4 g/dL (3.5-5.0); Albumin Globulin Ratio 1.4 (1.0-2.8); Alkaline Phosphatase 87 U/L (38-126); Aspartate Aminotransferase 29 IU/L (14-36); BUN Creatinine Ratio 20.7 (6-22); Blood Urea Nitrogen 19 mg/dL (7-17); Calcium 9.8 mg/dL (8.4-10.2); Carbon Dioxide 32 mmol/L (22-32); Chloride 102 mmol/L (98-107); Cholesterol 217 mg/dL (140-199); Estimated Glomerular Filt Rate > 60.0 mL/min (>60); Globulin 3.2 g/dL (1.7-4.1); Glucose 106 mg/dL (80-110); HDL Cholesterol 85 mg/dL (40-60); HEMOLYSIS < 15 (0-50); LDL Cholesterol Calculated 117 mg/dL (<100); Potassium 3.7 mmol/L (3.4-5.1); Sodium 138 mmol/L (137-145); Total Protein 7.6 g/dL (6.3-8.2); Triglycerides 74 mg/dL (35-150)
[2020-08-05 08:45] LABS: TSH w/ Reflex to FT4 3.07 uIU/mL (0.47-4.68)
== END ==
PROVIDERS: PCP Registered Nurse Diabetes Educator; Referring Provider Registered Nurse Diabetes Educator; Visit Provider Registered Nurse Diabetes Educator
DX: E66.9 Obesity, unspecified (principal); I10 Essential (primary) hypertension; R74.8 Abnormal levels of other serum enzymes
CPT/HCPCS: 36415; 80053; 80061; 84443; 85025

== ENCOUNTER → 2020-08-16 11:58 | Outpatient (CLI) | payer MEDICARE, OTHER, SELFPAY ==
--- NOTE | 2020-08-16 11:59 | DI.MG.S_ITS ---
BILATERAL DIGITAL SCREENING MAMMOGRAM 3D/2D WITH CAD: 08/16/2020 CLINICAL: Routine screening. Family history of breast cancer. Comparison is made to exams dated: 08/13/2019 mammogram, 07/27/2018 mammogram, and 07/17/2017 mammogram - [facility]. There are scattered fibroglandular elements in both breasts. Current study was also evaluated with a Computer Aided Detection (CAD) system. No significant masses, calcifications, or other findings are seen in either breast. There has been no significant interval change. IMPRESSION: NEGATIVE There is no mammographic evidence of malignancy. A 1 year screening mammogram is recommended. This exam was interpreted at Station ID: [id number]. NOTE: For mammograms, a report in lay terms will be sent to the patient. Approximately 15% of breast malignancies will not be visualized mammographically. In the management of a palpable breast mass, a negative mammogram must not discourage biopsy of a clinically suspicious lesion. Electronically Signed By: Cuong palacios/bri:08/16/2020 12:45:09 letter sent: Normal Exam ACR BI-RADS Category 1: Negative 3341F
== END ==
PROVIDERS: PCP Registered Nurse Diabetes Educator; Referring Provider Registered Nurse; Visit Provider Registered Nurse
DX: Z12.31 Encounter for screening mammogram for malignant neoplasm of breast (principal); Z80.3 Family history of malignant neoplasm of breast; M85.851 Other specified disorders of bone density and structure, right thigh; Z78.0 Asymptomatic menopausal state; Z90.722 Acquired absence of ovaries, bilateral; Z87.891 Personal history of nicotine dependence
CPT/HCPCS: 77063; 77067; 77080

== ENCOUNTER → 2020-11-16 10:52 | Outpatient (CLI) | payer MEDICARE, OTHER, SELFPAY ==
--- NOTE | 2020-11-16 10:54 | DIET.PN ---
Dietary Progress Note Assessment: 65y F referred to dietitian for help with diet for obesity, HLD, and osteopenia. 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 Pt gained 20# each with of mother and brother, and +5# with recent of father. Currently lives c spouse, generally is busy volunteering but this has slowed r/t pandemic. Pt started high protein diet over one year ago, lost 30# but noticed her blood lipids were elevated as she cut out most high fiber foods and relied more heavily on meat and dairy. Pt stops eating after 8pm so she can have a 12h fast. HT: 5'3 WT: 200# UBW:145# most of adult life, goal weight 170#, would love to be 145# if possible BMI: 35.4 Labs: TC 217 H, LDL 117 H, HDL 85 H Pt feels obesity is tied to relationship c in two ways: 1. they try to exercise together but he is not always an accountable exercise partner so pt does not do her exercise leading to fewer calories burned 2. Pt prefers 2 meals per day but feels she should sit down and eat meals with spouse so is intaking unnecessary calories. Tries to do exercise routine every morning, derails sometimes because their timing is off though they would like to work out together. likes big breakfast of eggs, eats right away, wants 3 meals per day Pt prefers two meals per day. 11am lunch- poached egg c veggies and cheese (cream, feta, [place]ster, c[place] islander) sometimes with meat (1 sl paul), coffee c half and half, does drink some tea (tumeric, morrocco mint) small cup grapefruit juice stir bower, tremayne, lots of veggies c a little meat Nutrition Diagnosis: obesity r/t undesirable food choices and physical inactivity aeb BMI 35.4, pt reports skipping workouts if gets dismotivated, pt overly restricting carbohydrates for weight loss limiting intake of highly satisfying dietary fiber. Interventions: 1. To support healthy body weight, educated pt on Hunger Scale. Pt will use hunger scale to honor herself to eat when she is a 3 and stop when she is an 8. This will help to dictate portion control and meal timing. Pt can sit with her for a meal and either not eat, or eat a smaller helping depending on her personal hunger/fullness cues. 2. To support healthy body weight, pt will commit to her morning exercise routine for herself, and, if her wants to join, it will be a bonus workout. 3. To support healthy cholesterol levels, pt will aim for 20g dietary fiber per day. Pt provided handout with high fiber foods. Pt feels she can easily add a serving of beans and a serving of berries to her day as part of a healthy diet. 4. To support bone health, pt will aim for 1200mg calcium daily, whatever does not come from food will be made up with through supplementation. Pt provided handout to analyze usual daily calcium intake for this purpose. Pt will focus on maintaining current bone density through weight bearing exercise. Monitoring/Evaluations: Pt will work on dietary reccs and schedule repeat lipids per PCP in March or April [address] f/u as desired.
== END ==
PROVIDERS: PCP Registered Nurse Diabetes Educator; Referring Provider Registered Nurse Diabetes Educator; Visit Provider Registered Nurse Diabetes Educator
DX: E66.9 Obesity, unspecified (principal); Z68.35 Body mass index [BMI] 35.0-35.9, adult; Z71.3 Dietary counseling and surveillance
CPT/HCPCS: 97802

== ENCOUNTER → 2021-03-30 08:24 | Outpatient (CLI) | payer MEDICARE, OTHER, SELFPAY ==
[2021-03-30 10:13] LABS: Cholesterol 204 mg/dL (140-199); Glucose 96 mg/dL (80-110); HDL Cholesterol 79 mg/dL (40-60); LDL Cholesterol Calculated 113 mg/dL (<100); Triglycerides 62 mg/dL (35-150)
[2021-03-30 10:36] LABS: Vitamin D 25 Hydroxy (D3) 76.6 ng/mL (30.0-100.0)
== END ==
PROVIDERS: PCP Registered Nurse Diabetes Educator; Referring Provider Registered Nurse Diabetes Educator; Visit Provider Registered Nurse Diabetes Educator
DX: E78.5 Hyperlipidemia, unspecified (principal); R53.83 Other fatigue
CPT/HCPCS: 36415; 80061; 82306; 82947

== ENCOUNTER → 2021-04-08 08:12 | Outpatient (CLI) | payer MEDICARE, OTHER, SELFPAY ==
--- NOTE | 2021-04-08 08:14 | DI.RAD.S_ITS ---
PROCEDURE: XR HIP W PEL IF DONE LT 2V INDICATIONS: L hip/SIJ/LBP x 1 year, no trauma TECHNIQUE: AP pelvis with lateral view(s) of the left hip(s). COMPARISON: None. FINDINGS: Bones: No fractures or dislocations. Pelvic ring appears intact. No suspicious bony lesions. Mild bilateral hip degenerative change. Soft tissues: The visualized bowel gas pattern is normal. No suspicious soft tissue calcifications. IMPRESSION: Mild bilateral hip degenerative change. No evidence acute bony abnormality of the pelvis and left hip. If clinical suspicion and/or symptoms persist, further assessment with repeat plain films, or advanced imaging (e.g., CT, MRI, or bone scan) may be helpful for further assessment. Dictated by: Shahzad Arias M.D. on 04/08/2021 at 10:51 Approved by: Shahzad Arias M.D. on 04/08/2021 at 10:53
--- NOTE | 2021-04-08 08:14 | DI.RAD.S_ITS ---
PROCEDURE: XR SACROILIAC JOINT MIN 3V INDICATIONS: L hip/SIJ/LBP x 1 year, no trauma TECHNIQUE: 3 views of the sacroiliac joints were acquired. COMPARISON: None. FINDINGS: Bones: No bony erosions or ankylosis. No suspicious bony lesions. No fractures. Lower lumbar facet arthropathy. Soft tissues: Overlying bowel gas pattern is normal. No suspicious soft tissue densities. IMPRESSION: Unremarkable SI joints. Dictated by: Shahzad Arias M.D. on 04/08/2021 at 10:54 Approved by: Shahzad Arias M.D. on 04/08/2021 at 10:54
--- NOTE | 2021-04-08 08:14 | DI.RAD.S_ITS ---
PROCEDURE: XR LUMBAR SPINE 2-3V INDICATIONS: L hip/SIJ/LBP x 1 year, no trauma TECHNIQUE: 2 views of the lumbar spine were acquired. COMPARISON: None. FINDINGS: Bones: 5 [id number] vertebrae are present. Trace degenerative retrolisthesis of L5 on S1. Mild degenerative anterolisthesis of L4 on L5, measuring approximately 8 mm. There is prominent facet arthropathy at L4-L5 and L5-S1. Appearance suggests bilateral foraminal narrowing at L5-S1. No vertebral body compression fractures. No suspicious bony lesions. Soft tissues: Overlying bowel gas pattern is normal. No suspicious soft tissue calcifications. IMPRESSION: Lower lumbar facet arthropathy. Probable bilateral L5-S1 foraminal stenosis. No evidence acute bony abnormality of the lumbar spine. If clinical suspicion and/or symptoms persist, further assessment with repeat plain films, or advanced imaging (e.g., CT, MRI, or bone scan) may be helpful for further assessment. Dictated by: Shahzad Arias M.D. on 04/08/2021 at 10:49 Approved by: Shahzad Arias M.D. on 04/08/2021 at 10:51
== END ==
PROVIDERS: PCP Registered Nurse Diabetes Educator; Referring Provider Registered Nurse Diabetes Educator; Visit Provider Registered Nurse Diabetes Educator
DX: M54.5 Low back pain (principal); M25.552 Pain in left hip; M47.816 Spondylosis without myelopathy or radiculopathy, lumbar region; G89.29 Other chronic pain
CPT/HCPCS: 72100; 72202; 73502

== ENCOUNTER → 2021-08-23 09:28 | Outpatient (CLI) | payer MEDICARE, OTHER, SELFPAY ==
--- NOTE | 2021-08-23 09:30 | DI.MG.S_ITS ---
BILATERAL DIGITAL SCREENING MAMMOGRAM 3D/2D WITH CAD: 08/23/2021 CLINICAL: Routine screening. Family history of breast cancer. Comparison is made to exams dated: 08/16/2020 mammogram, 08/13/2019 mammogram, and 07/27/2018 mammogram - [facility]. There are scattered fibroglandular elements in both breasts. Current study was also evaluated with a Computer Aided Detection (CAD) system. No significant masses, calcifications, or other findings are seen in either breast. There has been no significant interval change. IMPRESSION: NEGATIVE There is no mammographic evidence of malignancy. A 1 year screening mammogram is recommended. This exam was interpreted at Station ID: [id number]. NOTE: For mammograms, a report in lay terms will be sent to the patient. Approximately 15% of breast malignancies will not be visualized mammographically. In the management of a palpable breast mass, a negative mammogram must not discourage biopsy of a clinically suspicious lesion. Electronically Signed By: Gonzales Cameron M.D., jr/bri:08/23/2021 10:44:04 letter sent: Normal Exam ACR BI-RADS Category 1: Negative 3341F
== END ==
PROVIDERS: PCP Registered Nurse Diabetes Educator; Referring Provider Registered Nurse Diabetes Educator; Visit Provider Registered Nurse Diabetes Educator
DX: Z12.31 Encounter for screening mammogram for malignant neoplasm of breast (principal); Z80.3 Family history of malignant neoplasm of breast
CPT/HCPCS: 77063; 77067

== ENCOUNTER → 2021-09-28 08:59 | Outpatient (CLI) | payer MEDICARE, OTHER, SELFPAY ==
[2021-09-28 10:04] LABS: Hematocrit 40.2 % (36-46); Hemoglobin 13.5 g/dL (12.0-16.0); Mean Corpuscular HGB Conc 33.5 % (30-36); Mean Corpuscular Hemoglobin 29.2 PG (26-34); Platelet Count 232 X10^3/uL (150-400); Red Blood Cell Count 4.62 X10^6/uL (4.0-5.2); Red Cell Distribution Width 14.1 % (11.6-14.8); White Blood Cell Count 4.3 X10^3/uL (4.5-11.0)
[2021-09-28 10:11] LABS: Hemoglobin A1C% w Est Avg Glu 5.4 % (4.0-6.0)
[2021-09-28 10:22] LABS: Alanine Aminotransferase 29 IU/L (<35); Albumin 4.2 g/dL (3.5-5.0); Albumin Globulin Ratio 1.5 (1.0-2.8); Alkaline Phosphatase 71 U/L (38-126); Aspartate Aminotransferase 30 IU/L (14-36); BUN Creatinine Ratio 21.6 (6-22); Bilirubin Total 0.9 mg/dL (0.2-1.3); Blood Urea Nitrogen 21 mg/dL (7-17); Calcium 10.4 mg/dL (8.4-10.2); Carbon Dioxide 31 mmol/L (22-32); Chloride 104 mmol/L (98-107); Cholesterol 201 mg/dL (140-199); Estimated Glomerular Filt Rate 57.1 mL/min (>60); Globulin 2.8 g/dL (1.7-4.1); Glucose 100 mg/dL (80-110); HDL Cholesterol 85 mg/dL (40-60); HEMOLYSIS < 15 (0-50); LDL Cholesterol Calculated 106 mg/dL (<100); Potassium 5.2 mmol/L (3.4-5.1); Sodium 140 mmol/L (137-145); Triglycerides 48 mg/dL (35-150)
[2021-09-28 11:19] LABS: TSH w/ Reflex to FT4 2.99 uIU/mL (0.47-4.68)
== END ==
PROVIDERS: PCP Registered Nurse Diabetes Educator; Referring Provider Registered Nurse Diabetes Educator; Visit Provider Registered Nurse Diabetes Educator
DX: E78.5 Hyperlipidemia, unspecified (principal); R73.01 Impaired fasting glucose; I10 Essential (primary) hypertension
CPT/HCPCS: 36415; 80053; 80061; 83036; 84443; 85027

== ENCOUNTER → 2022-06-12 07:14 | Outpatient (CLI) | payer MEDICARE, OTHER, SELFPAY ==
[2022-06-12 09:10] LABS: Blood Urea Nitrogen 31 mg/dL (7-17); Calcium 9.9 mg/dL (8.4-10.2); Carbon Dioxide 28 mmol/L (22-32); Chloride 102 mmol/L (98-107); Estimated Glomerular Filt Rate > 60 mL/min (>60); Glucose 97 mg/dL (80-110); HEMOLYSIS < 15 (0-50); Potassium 4.7 mmol/L (3.4-5.1); Sodium 136 mmol/L (137-145)
== END ==
PROVIDERS: PCP Registered Nurse Diabetes Educator; Referring Provider Registered Nurse Diabetes Educator; Visit Provider Registered Nurse Diabetes Educator
DX: R94.4 Abnormal results of kidney function studies (principal)
CPT/HCPCS: 36415; 80048

== ENCOUNTER → 2022-09-22 15:00 | Outpatient (CLI) | payer MEDICARE, OTHER, SELFPAY ==
--- NOTE | 2022-09-22 15:02 | DI.MG.S_ITS ---
BILATERAL DIGITAL SCREENING MAMMOGRAM 3D/2D WITH CAD: 09/22/2022 CLINICAL: Routine screening. Family history of breast cancer. Comparison is made to exams dated: 08/23/2021 mammogram, 08/16/2020 mammogram, and 08/13/2019 mammogram - [facility]. There are scattered areas of fibroglandular density in both breasts (category b / 25%-50% glandular tissue). Current study was also evaluated with a Computer Aided Detection (CAD) system. No significant masses, calcifications, or other findings are seen in either breast. There has been no significant interval change. IMPRESSION: NEGATIVE There is no mammographic evidence of malignancy. A 1 year screening mammogram is recommended. Based on the Tyrer Cuzick model (a risk assessment model) the patient's lifetime risk is 8.1% and her 10 year risk is 4.8%. According to the ACR, ACS, and NCCN guidelines, an annual breast MRI exam along with mammogram is recommended if the patient's lifetime risk is 20% or greater. This exam was interpreted at Station ID: [id number]. NOTE: For mammograms, a report in lay terms will be sent to the patient. Approximately 15% of breast malignancies will not be visualized mammographically. In the management of a palpable breast mass, a negative mammogram must not discourage biopsy of a clinically suspicious lesion. Electronically Signed By: Nelson del valle/bri:09/22/2022 16:53:02 letter sent: Normal Exam ACR BI-RADS Category 1: Negative 3341F
== END ==
PROVIDERS: PCP Registered Nurse Diabetes Educator; Referring Provider Registered Nurse Diabetes Educator; Visit Provider Registered Nurse Diabetes Educator
DX: Z12.31 Encounter for screening mammogram for malignant neoplasm of breast; Z80.3 Family history of malignant neoplasm of breast; M85.851 Other specified disorders of bone density and structure, right thigh; Z13.820 Encounter for screening for osteoporosis; Z90.710 Acquired absence of both cervix and uterus
CPT/HCPCS: 77063; 77067; 77080

== ENCOUNTER → 2022-10-03 10:03 | Outpatient (CLI) | payer MEDICARE, OTHER, SELFPAY ==
[2022-10-03 10:56] LABS: Hematocrit 39.8 % (36-46); Hemoglobin 13.2 g/dL (12.0-16.0); Mean Corpuscular HGB Conc 33.1 % (30-36); Mean Corpuscular Hemoglobin 29.3 PG (26-34); Mean Corpuscular Volume 88.6 fL (80-100); Platelet Count 280 X10^3/uL (150-400); Red Blood Cell Count 4.49 X10^6/uL (4.0-5.2); Red Cell Distribution Width 14.5 % (11.6-14.8); White Blood Cell Count 5.4 X10^3/uL (4.5-11.0)
[2022-10-03 11:37] LABS: Alanine Aminotransferase 25 IU/L (<35); Albumin 4.1 g/dL (3.5-5.0); Albumin Globulin Ratio 1.3 (1.0-2.8); Alkaline Phosphatase 79 U/L (38-126); Aspartate Aminotransferase 27 IU/L (14-36); BUN Creatinine Ratio 21.5 (6-22); Bilirubin Total 0.8 mg/dL (0.2-1.3); Blood Urea Nitrogen 20 mg/dL (7-17); Calcium 9.6 mg/dL (8.4-10.2); Carbon Dioxide 29 mmol/L (22-32); Chloride 102 mmol/L (98-107); Cholesterol 206 mg/dL (140-199); Estimated Glomerular Filt Rate > 60 mL/min (>60); Globulin 3.1 g/dL (1.7-4.1); Glucose 96 mg/dL (80-110); HDL Cholesterol 67 mg/dL (40-60); HEMOLYSIS < 15 (0-50); LDL Cholesterol Calculated 125 mg/dL (<100); Potassium 4.1 mmol/L (3.4-5.1); Sodium 139 mmol/L (137-145); Total Protein 7.2 g/dL (6.3-8.2); Triglycerides 71 mg/dL (35-150)
[2022-10-03 11:45] LABS: TSH w/ Reflex to FT4 2.23 uIU/mL (0.47-4.68)
== END ==
PROVIDERS: PCP Registered Nurse Diabetes Educator; Referring Provider Registered Nurse Diabetes Educator; Visit Provider Registered Nurse Diabetes Educator
DX: I10 Essential (primary) hypertension (principal); E78.5 Hyperlipidemia, unspecified; R73.01 Impaired fasting glucose
CPT/HCPCS: 36415; 80053; 80061; 84443; 85027

== ENCOUNTER → 2023-01-02 09:12 | Outpatient (CLI) | payer MEDICARE, OTHER, SELFPAY ==
[2023-01-02 13:09] LABS: Cholesterol 168 mg/dL (140-199); HDL Cholesterol 90 mg/dL (40-60); LDL Cholesterol Calculated 70 mg/dL (<100); Triglycerides 41 mg/dL (35-150)
== END ==
PROVIDERS: PCP Registered Nurse Diabetes Educator; Referring Provider Registered Nurse Diabetes Educator; Visit Provider Registered Nurse Diabetes Educator
DX: E78.5 Hyperlipidemia, unspecified (principal)
CPT/HCPCS: 36415; 80061

== ENCOUNTER → 2023-03-30 10:11 | Outpatient (CLI) | payer MEDICARE, OTHER, SELFPAY ==
[2023-04-17 13:44] LABS: Acetylcholine Blocking AB 59
[2023-04-17 13:46] LABS: Acetylcholine Modulating AB 86
== END ==
PROVIDERS: PCP Registered Nurse Diabetes Educator; Referring Provider Ophthalmology; Visit Provider Ophthalmology
DX: H02.422 Myogenic ptosis of left eyelid (principal)
CPT/HCPCS: 36415; 83519

== ENCOUNTER → 2023-04-23 12:59 | Outpatient (CLI) | payer MEDICARE, OTHER, SELFPAY ==
[2023-04-23 16:54] LABS: Blood Urea Nitrogen 30 mg/dL (7-17); Estimated Glomerular Filt Rate 56 mL/min (>60)
== END ==
PROVIDERS: PCP Registered Nurse Diabetes Educator; Referring Provider Registered Nurse Diabetes Educator; Visit Provider Registered Nurse Diabetes Educator
DX: Z01.812 Encounter for preprocedural laboratory examination (principal); G70.00 Myasthenia gravis without (acute) exacerbation
CPT/HCPCS: 36415; 82565; 84520

== ENCOUNTER → 2023-04-24 10:02 | Outpatient (CLI) | payer MEDICARE, OTHER, SELFPAY ==
--- NOTE | 2023-04-24 10:03 | DI.CT.S_ITS ---
PROCEDURE: CT CHEST W CON INDICATIONS: eval thymus, new Dx of myasthenia gravis TECHNIQUE: After the administration of intravenous contrast, 5 mm thick sections acquired from the pulmonary apices to the posterior costophrenic angles. 1 mm axial lung, 5 mm thick coronal and sagittal reformats and 7 mm axial MIP were acquired. For radiation dose reduction, the following was used: automated exposure control, adjustment of mA and/or kV according to patient size. COMPARISON: [facility], CT, CT ANGIO CHEST PE PROTOCOL, 09/05/2018, 20:04. FINDINGS: Lungs and pleura: Small patchy region of consolidation and ground-glass opacity at the inferior aspect of the right middle lobe abutting the fissure with suggestion of adjacent focal bronchiectasis. Few tiny micro nodules present, for example 2 mm at the medial right lung apex (3/54). Patchy bronchovascular predominant ground-glass opacities right lower lobe. No pleural effusion. Mediastinum: No evidence of a thymoma or visible thymus tissue identified. No pericardial effusion. No mediastinal or hilar adenopathy by size criteria. Thoracic aorta and central pulmonary arteries are normal in size. Esophagus is normal in caliber. Bones and chest wall: Multilevel degenerative change of the visualized spine. No axillary or supraclavicular adenopathy by size criteria. Abdomen: Visualized upper abdominal solid organs appear normal. Upper abdominal bowel loops are normal in caliber. IMPRESSION: 1. No evidence of a thymoma or visible thymus tissue identified. 2. Few pulmonary micro nodules present. If the patient is considered low risk, imaging follow-up is not necessary per Fleischner society guidelines. If the patient is considered high risk, an optional 12 month follow-up chest CT could be obtained. 3. Small patchy region of consolidation and ground-glass opacity at the right middle lobe with suggestion of adjacent focal bronchiectasis, likely infectious/inflammatory such as postinfectious change or sequela of prior/chronic aspiration. 4. Patchy bronchovascular ground-glass opacities at the right lower lobe, likely infectious/inflammatory. Dictated by: Zander Olson M.D. on 04/24/2023 at 15:20 Approved by: Zander Olson M.D. on 04/24/2023 at 15:46
== END ==
PROVIDERS: PCP Registered Nurse Diabetes Educator; Referring Provider Registered Nurse Diabetes Educator; Visit Provider Registered Nurse Diabetes Educator
DX: G70.00 Myasthenia gravis without (acute) exacerbation (principal); R91.8 Other nonspecific abnormal finding of lung field
CPT/HCPCS: 71260; Q9967

== ENCOUNTER → 2023-05-07 09:36 | Outpatient (CLI) | payer MEDICARE, OTHER, SELFPAY ==
--- NOTE | 2023-05-07 09:37 | DI.RAD.S_ITS ---
PROCEDURE: FL BARIUM SWALLOW W SPEECH INDICATIONS: myasthemia gravis, dysphagia COMPARISON: TECHNIQUE: Examination was conducted in conjunction with speech pathology per standard protocol. In the lateral projection, filming was performed of the patient swallowing. AP projection filming may also be performed with patient swallowing. COMPARISON: [facility], CT, CT CHEST W CON, 04/24/2023, 10:14. FINDINGS: Function: The oral preparatory phase appears normal, with proper containment. The subsequent oral propulsive phase, pharyngeal phase, and esophageal phase of swallowing also appear normal with all proffered substances. No laryngotracheal penetration or aspiration. No pathologic vallecular pooling. Morphology: No cricopharyngeal bar is identified. No cervical esophageal webs. No Zenker's diverticulum. No strictures. Note is made of moderate esophageal dysmotility. IMPRESSION: 1. No laryngeal penetration or aspiration. Please see separate speech pathologists report for detail. 2. Moderate esophageal dysmotility. Dictated by: Bryon Vaz M.D. on 05/07/2023 at 11:26 Approved by: Bryon Vaz M.D. on 05/07/2023 at 11:27
--- NOTE | 2023-05-07 12:16 | ST.SWALLOW ---
Visit Care Team Role Provider Type SUJEY Walls Attending Provider Advanced Sap Basis Architect Primary Care Provider Referring Provider Specialty: Medical Address: [address] [place] [address], [facility] Email: [email or web address] Modified Barium Swallow Study HOCKEY INSTRUCTOR Modified Barium Swallow Study Start: 05/07/23 11:15 Freq: Status: Active Protocol: Document 05/07/23 11:15 LNK (Rec: 05/07/23 12:15 LNK [id number]) Modified Barium Swallow Study Total Time Visit Start Time 10:00 Visit Stop Time 01:30 Total Visit Minutes 30 Referral Referring Physician SUJEY Walls Patient Information Patient History Pt was seen for a Modified Barium Swallow Study at the referral of Cipriano RM. Pt reported that she recently (within the past 6 months( was diagnosed with Myasthenia Gravis. She reported that she has not experienced significant problems related to her diagnosis; however, she did report an episode of ptosis in March that resolved in approximately 3 days. Pt has been noticing that about 30 minutes after eating, particularly certain foods, she will cough for a period of about half an hour. Pt reported that liquid went up her nose once recently and that during one coughing episode she vomited up undigested food. Subjective Observations Pt was seated in the fluoroscopy chair. procedures and instructions were described for the pt. She indicated that she understood and agreed to proceed. Patient Positioning Position View Lat-A/P Imaging Lateral View Textures Administered Trials Presented Thin Liquid via Spoon (IDDSI 0 ),Thin Liquid via Cup (IDDSI 0 ),Extremely Thick Liquid via Spoon (IDDSI 4),Regular (IDDSI 7) Barium Tablet Yes The IDDSI Framework Protocol: IDDSI.1 Oral Impairment Source: The Modified Barium Swallow Impairment Profile (MBSImP??) Lip Closure No labial escape Tongue Control During Bolus Hold Cohesive bolus between tongue to palatal seal Bolus Preparation/Mastication Timely & efficient chewing & mashing Bolus Transport/Lingual Motion Brisk tongue motion Oral Residue Complete oral clearance Initiation of Pharyngeal Swallow Bolus head in valleculae Additional Oral Impairment Observations OME and DKS were noted to be WNL. Pt's dentition is natural in good hygeine. Premature spillage of the bolus head to the pyriforms was observed across trials. no oral residue observed post-swallow . Good mastication with rotary chew. Pharyngeal Impairment Source: The Modified Barium Swallow Impairment Profile (MBSImP??) Soft Palate Elevation No bolus between soft palate & pharyngeal wall Laryngeal Elevation Comp.sup.move.thyroid cart.w/ comp.approx.arytenoids to epiglot petiole Anterior Hyoid Excursion Complete anterior movement Epiglottic Movement Complete inversion Laryngeal Vestibular Closure Complete; no air/contrast in laryngeal vestibule Pharyngeal Stripping Wave Present - complete Pharyngoesophageal Segment Opening Complete distention & complete duration; no obstruction of flow Tongue Base Retraction No contrast between tongue base & posterior pharyngeal wall Pharyngeal Residue Complete pharyngeal clearance Additional Pharyngeal Impairment Pharyngeal phase of swallowing Observations was observed to be to be WNL. Small osteophytes were noted at C4-C5 that slightly altered the shape of the esophagus but did not impact swallow. A/P View Textures Administered Trials Presented Thin Liquid via Spoon (IDDSI 0 ) The IDDSI Framework Protocol: IDDSI.1 A/P View Observations Pharyngeal Contraction Complete Esophageal Clearance Upright Position Esophageal retention Esophageal Function Slowed Clearing,Poor Motility, Stasis Additional A-P Observations When initially turned to the AP position, the esophagus was noted to be full without clearance of previous trials. Water sips did move the esophageal contents slowly. At this point the pt began coughing, stating this is how she is coughing at home. The barium tablet cleared the esophagus. Recommend GI consult relative to pt's recent Myasthenia Gravis diagnosis. Clinical Impressions Dysphagia Type Esophageal Patient Appropriate for Therapy No Recommendations Diet Liquids Order Thin (IDDSI 0) Diet Order Regular (IDDSI 7) Medication Recommendation Whole in Carrier,One at a Time Aspiration Precautions Recommended Precautions Upright at 90 Degrees, Alternate Liquids/Solids, Frequent Rest Periods,Small Bites/Sips Additional Precautions elevate HOB to allow gravity assist in clearing esophagus Treatment Plan Recommended Referrals GI Consult Therapy Strategy Recommendations Sitting Upright (90 deg),Small Bites and Sips,Alternate Liquids/Solids
== END ==
PROVIDERS: PCP Registered Nurse Diabetes Educator; Referring Provider Registered Nurse Diabetes Educator; Visit Provider Registered Nurse Diabetes Educator
DX: G70.00 Myasthenia gravis without (acute) exacerbation (principal); K22.4 Dyskinesia of esophagus
CPT/HCPCS: 74230; 92611

== ENCOUNTER → 2023-05-09 08:29 | Outpatient (CLI) | payer MEDICARE, OTHER, SELFPAY ==
[2023-05-09 10:04] LABS: BUN Creatinine Ratio 20.2 (6-22); Blood Urea Nitrogen 21 mg/dL (7-17); Estimated Glomerular Filt Rate 58 mL/min (>60)
[2023-05-09 10:18] LABS: Free T4, Direct Thyroxine 1.22 ng/dL (0.78-2.19)
[2023-05-09 22:30] LABS: Thyroid Peroxidase Antibodies <9 IU/mL (0-34)
[2023-05-11 19:38] LABS: Thyroid Stimulating Immunoglob < 0.10 IU/L (0.00-0.55)
== END ==
PROVIDERS: PCP Registered Nurse Diabetes Educator; Referring Provider Registered Nurse Diabetes Educator; Visit Provider Registered Nurse Diabetes Educator
DX: G70.00 Myasthenia gravis without (acute) exacerbation (principal); Z01.812 Encounter for preprocedural laboratory examination; I10 Essential (primary) hypertension; E78.5 Hyperlipidemia, unspecified; Z79.899 Other long term (current) drug therapy
CPT/HCPCS: 82565; 84439; 84445; 84520; 86376

== ENCOUNTER → 2023-09-28 07:44 | Outpatient (CLI) | payer MEDICARE, OTHER, SELFPAY ==
--- NOTE | 2023-09-28 07:45 | DI.MG.S_ITS ---
BILATERAL DIGITAL SCREENING MAMMOGRAM 3D/2D WITH CAD: 09/28/2023 CLINICAL: Routine screening. Family history of breast cancer. Comparison is made to exams dated: 09/22/2022 mammogram, 08/23/2021 mammogram, and 08/16/2020 mammogram - [facility]. There are scattered areas of fibroglandular density in both breasts (category b / 25%-50% glandular tissue). Current study was also evaluated with a Computer Aided Detection (CAD) system. No significant masses, calcifications, or other findings are seen in either breast. There has been no significant interval change. IMPRESSION: NEGATIVE There is no mammographic evidence of malignancy. A 1 year screening mammogram is recommended. Based on the Tyrer Cuzick model (a risk assessment model) the patient's lifetime risk is 7.7% and her 10 year risk is 4.9%. According to the ACR, ACS, and NCCN guidelines, an annual breast MRI exam along with mammogram is recommended if the patient's lifetime risk is 20% or greater. This exam was interpreted at Station ID: [id number]. NOTE: For mammograms, a report in lay terms will be sent to the patient. Approximately 15% of breast malignancies will not be visualized mammographically. In the management of a palpable breast mass, a negative mammogram must not discourage biopsy of a clinically suspicious lesion. Electronically Signed By: Iron pinto/bri:09/28/2023 08:59:06 letter sent: Normal Exam ACR BI-RADS Category 1: Negative [id number]
== END ==
PROVIDERS: PCP Registered Nurse Diabetes Educator; Referring Provider Registered Nurse Diabetes Educator; Visit Provider Registered Nurse Diabetes Educator
DX: Z12.31 Encounter for screening mammogram for malignant neoplasm of breast (principal); Z80.3 Family history of malignant neoplasm of breast
CPT/HCPCS: 77063; 77067

== ENCOUNTER → 2023-10-03 08:56 | Outpatient (CLI) | payer MEDICARE, OTHER, SELFPAY ==
[2023-10-03 10:48] LABS: Hematocrit 38.5 % (36-46); Hemoglobin 12.8 g/dL (12.0-16.0); Mean Corpuscular HGB Conc 33.2 % (30-36); Mean Corpuscular Hemoglobin 29.8 PG (26-34); Mean Corpuscular Volume 89.9 fL (80-100); Platelet Count 226 X10^3/uL (150-400); Red Blood Cell Count 4.28 X10^6/uL (4.0-5.2); Red Cell Distribution Width 14.3 % (11.6-14.8); White Blood Cell Count 7.5 X10^3/uL (4.5-11.0)
[2023-10-03 11:08] LABS: Alanine Aminotransferase 25 IU/L (<35); Albumin 4.1 g/dL (3.5-5.0); Albumin Globulin Ratio 1.4 (1.0-2.8); Alkaline Phosphatase 72 U/L (38-126); Aspartate Aminotransferase 29 IU/L (14-36); BUN Creatinine Ratio 21.4 (6-22); Bilirubin Total 0.9 mg/dL (0.2-1.3); Blood Urea Nitrogen 18 mg/dL (7-17); Calcium 10.4 mg/dL (8.4-10.2); Carbon Dioxide 28 mmol/L (22-32); Chloride 100 mmol/L (98-107); Cholesterol 159 mg/dL (140-199); Estimated Glomerular Filt Rate > 60 mL/min (>60); Globulin 2.9 g/dL (1.7-4.1); Glucose 97 mg/dL (80-110); HDL Cholesterol 91 mg/dL (40-60); HEMOLYSIS < 15 (0-50); LDL Cholesterol Calculated 60 mg/dL (<100); Potassium 4.6 mmol/L (3.4-5.1); Sodium 136 mmol/L (137-145); Triglycerides 42 mg/dL (35-150)
== END ==
PROVIDERS: PCP Registered Nurse Diabetes Educator; Referring Provider Registered Nurse Diabetes Educator; Visit Provider Registered Nurse Diabetes Educator
DX: E78.5 Hyperlipidemia, unspecified (principal); I10 Essential (primary) hypertension
CPT/HCPCS: 36415; 80053; 80061; 85027

== ENCOUNTER → 2023-12-26 08:14 | Outpatient (CLI) | payer MEDICARE, OTHER, SELFPAY ==
[2023-12-26 09:27] LABS: BUN Creatinine Ratio 25.5 (6-22); Blood Urea Nitrogen 26 mg/dL (7-17); Calcium 9.7 mg/dL (8.4-10.2); Carbon Dioxide 24 mmol/L (22-32); Chloride 105 mmol/L (98-107); Estimated Glomerular Filt Rate 59 mL/min (>60); Glucose 92 mg/dL (80-110); HEMOLYSIS < 15 (0-50); Potassium 4.5 mmol/L (3.4-5.1); Sodium 138 mmol/L (137-145)
[2023-12-26 09:45] LABS: Vitamin D 25 Hydroxy (D3) 62.7 ng/mL (30.0-100.0)
[2023-12-27 14:47] LABS: Ionized Calcium 5.3 mg/dL (4.5-5.6)
[2023-12-28 10:47] LABS: Calcium 9.7 mg/dL (8.7-10.3); Parathyroid Hormone, Intact 48 pg/mL (15-65)
[2024-01-06 12:01] LABS: 1,25-Dihydroxy, Vitamin D-2 <10 pg/mL (.)
== END ==
PROVIDERS: PCP Registered Nurse Diabetes Educator; Referring Provider Registered Nurse Diabetes Educator; Visit Provider Registered Nurse Diabetes Educator
DX: I10 Essential (primary) hypertension (principal); E83.52 Hypercalcemia
CPT/HCPCS: 36415; 80048; 82306; 82310; 82330; 82652; 83970

== ENCOUNTER 2023-12-28 14:58 | Emergency (ER) | payer MEDICARE, OTHER, SELFPAY ==
[2023-12-28 15:10] VITALS: BP 155/72; PULSE 80; RESP 16; TEMP 36.7; O2SAT 98; BMI 34.5
--- NOTE | 2023-12-28 16:04 | ED.NECK ---
HPI - Neck Pain/Injury <Ifeoma Dixon PA-C - Last Filed: 12/28/23 17:37> General Chief Complaint: Neck Pain/Injury Stated Complaint: neck pain Time Seen by Provider: 12/28/23 16:04 Mode of arrival: Ambulatory History of Present Illness HPI Narrative: Patient is a 68-year-old female presenting for evaluation of neck pain. She has a chronic condition of myasthenia gravis. She reports that she had no change in her normal activity except a slight left-sided earache after a trip to the [facility] several weeks ago. She reports that 2:00 a.m. this morning, she woke up with some pain in the left side of her neck. She endorses an injury about 40 years ago to her neck and has had pain on and off since then which is easily resolve with Motrin. She states that lately it has been hurting more on the left side. She states she also has low back pain generally which is tending to be on the left side. She denies any weakness or numbness in her arms. She denies any blurriness or double vision. She reports that she took 200 mg of Motrin that 8 in at noon today. She does endorse a moment of nausea. She states that her neck pain in the left side has been worsening such that she has been unable to lift her eyes up from the ground. She states she is attempted using a 10s unit which she had had previously due to migraines. She denies any recent trauma to her neck. Related Data Home Medications Medication Instructions Recorded Confirmed cholecalciferol (vitamin D3) PO 08/13/18 10/09/23 fluticasone propionate 115 g inhalation 04/19/23 10/09/23 mcg-salmeterol 21 mcg/actuation HFA inhaler (Advair HFA) Previous Rx's Medication Instructions Recorded montelukast 10 mg tablet 10 mg PO BEDTIME #60 tabs 05/19/19 estradiol 0.01% (0.1 mg/gram) 1 g vaginal 3XW #42.5 grams 01/29/23 vaginal cream hydrochlorothiazide 25 mg tablet 25 mg PO DAILY #90 tabs 10/09/23 lisinopril 40 mg tablet 40 mg PO DAILY #90 tabs 10/09/23 rosuvastatin 5 mg tablet 5 mg PO DAILY #90 tabs 10/09/23 methocarbamol 500 mg tablet 500 mg PO TID PRN muscle spasm #15 12/28/23 tabs Allergies Allergy/AdvReac Type Severity Reaction Status Date / Time cat dander [CAT DANDER] Allergy Mild EYES SWELL Verified 10/09/23 07:59 SHUT house dust mite Allergy Verified 10/09/23 07:59 seasonal rye Allergy Uncoded 10/09/23 07:59 Review of Systems <Ifeoma Dixon PA-C - Last Filed: 12/28/23 17:37> Review of Systems Narrative: See HPI Patient History <Ifeoma Dixon PA-C - Last Filed: 12/28/23 17:37> Medical History Cervical dysplasia Other low back pain Esophageal dysphagia Esophageal dysmotility Myasthenia gravis Moderate persistent asthma Chronic left hip pain Chronic low back pain Impaired fasting blood sugar Osteopenia Obesity Dyslipidemia Elevated liver enzymes Migraines Chronic back pain Chronic headaches Cervical spine disease HPV (human papilloma virus) infection (1994) Abnormal Pap smear of cervix (1994) Colon polyps (2005) Hypertension (2003) SCC (squamous cell carcinoma), lip (2008) Surgical History History of colonoscopy (2010) History of cone biopsy of uterine cervix (1994) Anesthesia History of squamous cell carcinoma excision (2008) Status post breast biopsy (1996) History of tonsillectomy (1982) Status post hysterectomy with oophorectomy (2002) Family History Grandmother Cancer Colon cancer Brother Diabetes mellitus Cystic fibrosis gene carrier Cystic fibrosis Father Prostate cancer Stroke Dysphagia Grandfather Heart disease Grandmother Heart disease Mother Cancer Uterine cancer Adenocarcinoma, lung Grandfather Stroke Sister Cystic fibrosis Cystic fibrosis gene carrier Social History household members: spouse Previous occupational history: RETIRED PHYSICAL THERAPIST Smoking Status: Former smoker Tobacco: How many years used: 20 alcohol intake: current substance use type: does not use Smoking Status: Former smoker alcohol intake frequency: 0-2 drinks per day Substance Use Type: does not use Exam <Ifeoma Dixon PA-C - Last Filed: 12/28/23 17:37> Initial Vital Signs Initial Vital Signs: Vital Signs Temperature 98.1 F 12/28/23 15:10 Pulse Rate 80 12/28/23 15:10 Respiratory Rate 16 12/28/23 15:10 Blood Pressure 155/72 H 12/28/23 15:10 Pulse Oximetry 98 12/28/23 15:10 Oxygen Delivery Method Room Air 12/28/23 15:10 GENERAL: 68 year old patient appears stated age. Well-developed patient, in distress, she has her neck flexed with eyes facing the floor due to inability to extend her neck. No difficulty breathing or speaking noted HEAD: Atraumatic. Normocephalic. EYES: Pupils equal round and reactive to light and accommodation bilaterally, No scleral icterus. No injection or drainage. NECK: Spasm palpated bilaterally at superior posterior neck worse on the left than right, RESPIRATORY: Speaking comfortably normal tone of voice without any increased work of breathing. EXTREMITIES: Bilateral elbow flexion extension 5/5, bilateral vice president of human resources strength 5/5 BACK: No midline spinal tenderness NEURO: AOx3. SKIN: No rash or erythema of visible areas <Mahi Gutierrez DO - Last Filed: 12/28/23 19:51> Initial Vital Signs Initial Vital Signs: Vital Signs Temperature 98.1 F 12/28/23 15:10 Pulse Rate 80 12/28/23 15:10 Respiratory Rate 16 12/28/23 15:10 Blood Pressure 155/72 H 12/28/23 15:10 Pulse Oximetry 98 12/28/23 15:10 Oxygen Delivery Method Room Air 12/28/23 15:10 Course <Ifeoma Dixon PA-C - Last Filed: 12/28/23 17:37> Orders Ordered: Discontinued Medications Ketorolac Tromethamine (Ketorolac 30 Mg/Ml Vial) 30 mg IM NOW ONE Stop: 12/28/23 16:30 Last Admin: 12/28/23 16:53 Dose: 30 mg Documented By: ABBY Methocarbamol (Methocarbamol 500 Mg Tablet) 500 mg PO NOW ONE Stop: 12/28/23 16:30 Last Admin: 12/28/23 16:52 Dose: 500 mg Documented By: ABBY Vital Signs Vital signs: Vital Signs - 8 hr 12/28/23 15:10 12/28/23 17:37 Temperature 98.1 F Pulse Rate 80 69 Respiratory Rate 16 16 Blood Pressure 155/72 H 141/75 H Pulse Oximetry 98 99 Oxygen Delivery Method Room Air Room Air <Mahi Gutierrez DO - Last Filed: 12/28/23 19:51> Orders Ordered: Discontinued Medications Ketorolac Tromethamine (Ketorolac 30 Mg/Ml Vial) 30 mg IM NOW ONE Stop: 12/28/23 16:30 Last Admin: 12/28/23 16:53 Dose: 30 mg Documented By: ABBY Methocarbamol (Methocarbamol 500 Mg Tablet) 500 mg PO NOW ONE Stop: 12/28/23 16:30 Last Admin: 12/28/23 16:52 Dose: 500 mg Documented By: ABBY Vital Signs Vital signs: Vital Signs - 8 hr 12/28/23 15:10 12/28/23 17:37 Temperature 98.1 F Pulse Rate 80 69 Respiratory Rate 16 16 Blood Pressure 155/72 H 141/75 H Pulse Oximetry 98 99 Oxygen Delivery Method Room Air Room Air MDM - Neck Pain/Injury <Ifeoma Dixon PA-C - Last Filed: 12/28/23 17:37> MDM Narrative Medical decision making narrative: Patient is a 68-year-old female presenting for evaluation of severe neck spasm. Considered differential diagnosis of myasthenia gravis, but patient has no weakness no respiratory distress. Reviewed Toradol and muscle relaxer options on up-to-date and with supervising physician for safety in use with myasthenia gravis. No contraindication found for methocarbamol or Toradol. May consider Ativan if symptoms continue. Patient is agreeable to receiving 30 mg of Toradol as well as 500 mg of methocarbamol. 1730 patient's symptoms have improved, and although she still has pain and spasm, she is able to lift her head up and rest against the back of the chair. She denies any respiratory distress, visual changes or weakness in her arms or legs. Discussed with patient that I recommend increase fluids, moist heat, gentle stretching of her neck as tolerated and I recommend Tylenol in addition to providing a prescription of methocarbamol. She has follow up with her primary care provider scheduled for this Sunday. She defers further treatment with Ativan and would like to be discharged home with muscle relaxer since she is noticing improvement in her symptoms. Discharge Plan Departure Patient Disposition: Home Clinical Impression: Neck muscle spasm Activity Restrictions/Additional Instructions: You were diagnosed today with a muscle spasm of your neck. You received some relief of the spasm in your pain after 30 mg of Toradol and 500 mg of methocarbamol. I will send you a prescription of methocarbamol to take at home over the next several days until your follow up with your primary care provider on Sunday. I recommend moist heat, Tylenol, increase fluids and gentle stretching as tolerated to help relieve spasm. We did discuss today that your recent blood work shows your GFR is 59, this is slightly below average. I recommend that you increase fluid intake, use Tylenol over ibuprofen for consistent use to treat this spasm and continue discussing with primary care provider on Sunday. Prescriptions: New methocarbamol 500 mg tablet 500 mg PO TID PRN (Reason: muscle spasm) Qty: 15 0RF Rx Instructions: May cause drowsiness, do not drive while taking this medicine. No Action estradiol 0.01 % (0.1 mg/gram) cream 1 g vaginal 3XW Qty: 42.5 3RF Rx Instructions: Apply 1 g PV hs 3 times a week. cholecalciferol (vitamin D3) PO lisinopril 40 mg tablet 40 mg PO DAILY Qty: 90 0RF hydrochlorothiazide 25 mg tablet 25 mg PO DAILY Qty: 90 3RF rosuvastatin 5 mg tablet 5 mg PO DAILY Qty: 90 3RF Rx Instructions: at bedtime montelukast 10 mg tablet 10 mg PO BEDTIME Qty: 60 0RF fluticasone propion-salmeterol [Advair HFA] 115-21 mcg/actuation HFA aerosol inhaler inhalation Patient Comments: INHALE 2 PUFFS INTO THE LUNGS TWICE DAILY Referrals: Mickey Degroot ARNP [Primary Care Provider] - Stand Alone Forms: Patient Portal/API ED Sign-out <Mahi Gutierrez DO - Last Filed: 12/28/23 19:51> Cosign ED Attending Shakir Attestation: I was available for consultation. We discussed medications she has not having any sort of weakness sounds like she is having pain did not consistent with a myasthenia gravis exacerbation. I do not see and evaluate patient
[2023-12-28] MEDS: methocarbamoL 500 MG TABLET PO (16:52)
[2023-12-28] MEDS: KETOROLAC 30 MG/ML VIAL IM (16:53)
[2023-12-28 17:37] VITALS: BP 141/75; PULSE 69; RESP 16; O2SAT 99
== END 2023-12-28 17:50 | disposition home or self-care (01) ==
PROVIDERS: Emergency Provider Physician Assistant; PCP Registered Nurse Diabetes Educator
DX: M62.838 Other muscle spasm (principal)
CPT/HCPCS: 96372; 99283; J1885

== ENCOUNTER → 2024-04-21 11:22 | Outpatient (CLI) | payer MEDICARE, OTHER, SELFPAY ==
--- NOTE | 2024-04-21 11:24 | DI.RAD.S_ITS ---
PROCEDURE: XR KNEE LT 3V INDICATIONS: acute on chronic knee pain/injury TECHNIQUE: 3 views of the knee were acquired. COMPARISON: None. FINDINGS: Bones: There is moderate femorotibial joint space narrowing, intercondylar osteophytes and small tricompartmental osteophytes. Soft tissues: No joint effusion. No suspicious soft tissue calcifications. IMPRESSION: Moderate osteoarthritis. No acute radiographic findings. If pain persists, followup imaging in 5-7 days is recommended to exclude occult fracture. Dictated by: Otilia Kyle M.D. on 04/21/2024 at 12:49 Approved by: Otilia Kyle M.D. on 04/21/2024 at 12:49
== END ==
PROVIDERS: PCP Registered Nurse Diabetes Educator; Referring Provider Student in an Organized Health Care Education/Training Program; Visit Provider Student in an Organized Health Care Education/Training Program
DX: S83.92XA Sprain of unspecified site of left knee, initial encounter (principal); M17.12 Unilateral primary osteoarthritis, left knee; M25.562 Pain in left knee; X58.XXXA Exposure to other specified factors, initial encounter
CPT/HCPCS: 73562

== ENCOUNTER → 2024-09-29 08:55 | Outpatient (CLI) | payer MEDICARE, OTHER, SELFPAY ==
[2024-09-29 10:27] LABS: Hematocrit 40.2 % (36-46); Hemoglobin 13.2 g/dL (12.0-16.0); Mean Corpuscular HGB Conc 32.9 % (30-36); Mean Corpuscular Hemoglobin 29.9 PG (26-34); Platelet Count 255 X10^3/uL (150-400); Red Blood Cell Count 4.42 X10^6/uL (4.0-5.2); Red Cell Distribution Width 13.6 % (11.6-14.8); White Blood Cell Count 6.6 X10^3/uL (4.5-11.0)
[2024-09-29 10:50] LABS: Alanine Aminotransferase 30 IU/L (<35); Albumin 4.2 g/dL (3.5-5.0); Albumin Globulin Ratio 1.6 (1.0-2.8); Alkaline Phosphatase 83 U/L (38-126); Aspartate Aminotransferase 33 IU/L (14-36); BUN Creatinine Ratio 31.7 (6-22); Bilirubin Total 0.7 mg/dL (0.2-1.3); Blood Urea Nitrogen 32 mg/dL (7-17); Calcium 10.4 mg/dL (8.4-10.2); Carbon Dioxide 25 mmol/L (22-32); Chloride 106 mmol/L (98-107); Cholesterol 174 mg/dL (140-199); Estimated Glomerular Filt Rate 60 mL/min (>60); Globulin 2.6 g/dL (1.7-4.1); Glucose 92 mg/dL (80-110); HDL Cholesterol 103 mg/dL (40-60); HEMOLYSIS < 15 (0-50); LDL Cholesterol Calculated 62 mg/dL (<100); Potassium 4.8 mmol/L (3.4-5.1); Sodium 138 mmol/L (137-145); Total Protein 6.8 g/dL (6.3-8.2); Triglycerides 43 mg/dL (35-150)
== END ==
PROVIDERS: PCP Registered Nurse Diabetes Educator; Referring Provider Registered Nurse Diabetes Educator; Visit Provider Registered Nurse Diabetes Educator
DX: Z51.81 Encounter for therapeutic drug level monitoring (principal); I10 Essential (primary) hypertension; E78.5 Hyperlipidemia, unspecified
CPT/HCPCS: 36415; 80053; 80061; 85027

== ENCOUNTER → 2024-09-30 15:45 | Outpatient (CLI) | payer MEDICARE, OTHER, SELFPAY ==
--- NOTE | 2024-09-30 15:47 | DI.MG.S_ITS ---
BILATERAL DIGITAL SCREENING MAMMOGRAM 3D/2D WITH CAD: 09/30/2024 CLINICAL: Routine screening. Family history of breast cancer. Comparison is made to exams dated: 09/22/2022 mammogram, 09/28/2023 mammogram, 08/23/2021 mammogram, 08/16/2020 mammogram, 08/13/2019 mammogram, and 07/27/2018 mammogram - [facility]. There are scattered areas of fibroglandular density (category b / 25%-50% glandular tissue). Current study was also evaluated with a Computer Aided Detection (CAD) system. No significant masses, calcifications, or other findings are seen in either breast. There has been no significant interval change. IMPRESSION: NEGATIVE There is no mammographic evidence of malignancy. A 1 year screening mammogram is recommended. Based on the Tyrer Cuzick model (a risk assessment model) the patient's lifetime risk is 7.3% and her 10 year risk is 5.0%. According to the ACR, ACS, and NCCN guidelines, an annual breast MRI exam along with mammogram is recommended if the patient's lifetime risk is 20% or greater. This exam was interpreted at Station ID: [id number]. NOTE: For mammograms, a report in lay terms will be sent to the patient. Approximately 15% of breast malignancies will not be visualized mammographically. In the management of a palpable breast mass, a negative mammogram must not discourage biopsy of a clinically suspicious lesion. Electronically Signed By: Sharlene James M.D., Ph.D. lolita/bri:10/01/2024 17:51:25 letter sent: Normal Exam ACR BI-RADS Category 1: Negative
== END ==
LOC: MAMMO 15:46
PROVIDERS: PCP Registered Nurse Diabetes Educator; Referring Provider Registered Nurse Diabetes Educator; Visit Provider Registered Nurse Diabetes Educator
DX: Z12.31 Encounter for screening mammogram for malignant neoplasm of breast (principal); Z80.3 Family history of malignant neoplasm of breast
CPT/HCPCS: 77063; 77067

== ENCOUNTER → 2024-10-06 12:42 | Outpatient (CLI) | payer MEDICARE, OTHER, SELFPAY ==
--- NOTE | 2024-10-06 12:45 | DI.RAD.S_ITS ---
PROCEDURE: XR DEXA AXIAL SKELETON INDICATIONS: re-eval COMPARISON: [facility], CR, XR DEXA AXIAL SKELETON, 09/22/2022, 16:30. FINDINGS: Lumbar Spine: Bone mineral density 0.989 g/cm2, T score -0.5, compared to -0.6. Left Hip: Bone mineral density 0.880 g/cm2, T score -0.5, compared to -0.6. Left Femoral Neck: Bone mineral density 0.679 g/cm2, T score -1.5, unchanged. Right Hip: Bone mineral density 0.828 g/cm2, T score -0.9, compared to -0.6. Right Femoral Neck: Bone mineral density 0.606 g/cm2, T score -2.2, compared to -1.9. Fracture Risk Calculation (when applicable): 10-year fracture risk of a major osteoporotic fracture 19 percent and of a hip fracture 4.5 percent. (T score greater or equal to -1.0 to: NORMAL) (T score from -1.1 to -2.4: OSTEOPENIA) (T score less than or equal to -2.5: OSTEOPOROSIS) IMPRESSION: Progressive osteopenia in the right femoral neck, stable on the left. Follow-up guidelines as follows: Osteoporosis: Consider a repeat DEXA and Vertebral Fracture Assessment (VFA) exam in 2 years or sooner if medically necessary, to reassess this patient's status. Osteopenia: Consider a repeat DEXA in 2-3 years to reassess this patient's status, or if there is a new clinical indication. Normal: Consider a repeat DEXA in 5 years or sooner, or if there is a new clinical indication. All treatment decisions require clinical judgment and consideration of individual patient factors, including patient preferences, comorbidities, previous drug use, risk factors not captured in the FRAX model (e.g., frailty, falls, vitamin D deficiency, increased bone turnover, interval significant decline in bone density ) and possible under- or over-estimation of fracture risk by FRAX. In addition, the NOF Guide recommends that FDA-approved medical therapies be considered in postmenopausal women and men age >= 50 years with a: * Hip or vertebral (clinical or morphometric) fracture * T-score of <=-2.5 at the spine or hip * Ten-year fracture probability by FRAX of >= 3% for hip fracture or >=20% for major osteoporotic fracture. People with diagnosed cases of osteoporosis or at high risk for fracture should have regular bone mineral density tests. For patients eligible for Medicare, routine testing is allowed once every 2 years. The testing frequency can be increased to one year for patients who have rapidly progressing disease, those who are receiving or discontinuing medical therapy to restore bone mass, or have additional risk factors. Dictated by: Linh Reilly M.D. on 10/06/2024 at 16:40 Approved by: Linh Reilly M.D. on 10/06/2024 at 16:58
== END ==
PROVIDERS: PCP Registered Nurse Diabetes Educator; Referring Provider Registered Nurse Diabetes Educator; Visit Provider Registered Nurse Diabetes Educator
DX: Z78.0 Asymptomatic menopausal state (principal); M85.89 Other specified disorders of bone density and structure, multiple sites
CPT/HCPCS: 77080

== ENCOUNTER → 2025-02-24 11:59 | Outpatient (CLI) | payer MEDICARE, OTHER, SELFPAY ==
[2025-02-26 02:36] LABS: Hepatitis B Surf Ab Qualitativ Reactive (.)
== END ==
PROVIDERS: PCP Registered Nurse Diabetes Educator; Referring Provider Internal Medicine; Visit Provider Internal Medicine
DX: G70.00 Myasthenia gravis without (acute) exacerbation (principal)
CPT/HCPCS: 36415; 86706

== ENCOUNTER → 2025-10-08 07:59 | Outpatient (CLI) | payer MEDICARE, OTHER, SELFPAY ==
[2025-10-08 08:38] LABS: Hematocrit 36.6 % (36-46); Hemoglobin 12.6 g/dL (12.0-16.0); Mean Corpuscular HGB Conc 34.4 % (30-36); Mean Corpuscular Hemoglobin 30.1 PG (26-34); Mean Corpuscular Volume 87.6 fL (80-100); Platelet Count 254 X10^3/uL (150-400)
[2025-10-08 09:16] LABS: Alanine Aminotransferase 26 IU/L (<35); Albumin 4.2 g/dL (3.5-5.0); Albumin Globulin Ratio 1.5 (1.0-2.8); Alkaline Phosphatase 89 U/L (38-126); Blood Urea Nitrogen 29 mg/dL (7-17); Calcium 10.0 mg/dL (8.4-10.2); Carbon Dioxide 26 mmol/L (22-32); Chloride 107 mmol/L (98-107); Cholesterol 208 mg/dL (140-199); Estimated Glomerular Filt Rate 60 mL/min (>60); Globulin 2.8 g/dL (1.7-4.1); Glucose 96 mg/dL (70-99); HDL Cholesterol 95 mg/dL (40-60); HEMOLYSIS < 15 (0-50); Potassium 4.5 mmol/L (3.4-5.1); Sodium 139 mmol/L (137-145); Total Protein 7.0 g/dL (6.3-8.2); Triglycerides 53 mg/dL (35-150)
== END ==
PROVIDERS: PCP Registered Nurse Diabetes Educator; Referring Provider Registered Nurse Diabetes Educator; Visit Provider Registered Nurse Diabetes Educator
DX: E78.5 Hyperlipidemia, unspecified (principal); I10 Essential (primary) hypertension; M85.80 Other specified disorders of bone density and structure, unspecified site
CPT/HCPCS: 36415; 80053; 80061; 85027

== ENCOUNTER → 2025-10-15 14:39 | Outpatient (CLI) | payer MEDICARE, OTHER, SELFPAY ==
--- NOTE | 2025-10-15 14:39 | DI.RAD.S_ITS ---
PROCEDURE: XR DEXA AXIAL SKELETON INDICATIONS: reeval prior osteopenia COMPARISON: [facility], [place], XR DEXA AXIAL SKELETON, 10/06/2024, 12:54. FINDINGS: Lumbar Spine: Bone mineral density 0.997 g/cm2, T score -0.5, prior T score of -0.5. Left Femoral Neck: Bone mineral density 0.664 g/cm2, T score -1.7. Left Hip: Bone mineral density 0.848 g/cm2, T score -0.8, prior T score of -0.5. Fracture Risk Calculation (when applicable): 10-year fracture risk of a major osteoporotic fracture 16 percent and of a hip fracture 3.0 percent. (T score greater or equal to -1.0 to: NORMAL) (T score from -1.1 to -2.4: OSTEOPENIA) (T score less than or equal to -2.5: OSTEOPOROSIS) IMPRESSION: Ostepenia, comparison cannot be made to the prior exam due to differences in technique, however the prior T-scores are reported. Follow-up guidelines as follows: Osteoporosis: Consider a repeat DEXA and Vertebral Fracture Assessment (VFA) exam in 2 years or sooner if medically necessary, to reassess this patient's status. Osteopenia: Consider a repeat DEXA in 2-3 years to reassess this patient's status, or if there is a new clinical indication. Normal: Consider a repeat DEXA in 5 years or sooner, or if there is a new clinical indication. All treatment decisions require clinical judgment and consideration of individual patient factors, including patient preferences, comorbidities, previous drug use, risk factors not captured in the FRAX model (e.g., frailty, falls, vitamin D deficiency, increased bone turnover, interval significant decline in bone density ) and possible under- or over-estimation of fracture risk by FRAX. In addition, the NOF Guide recommends that FDA-approved medical therapies be considered in postmenopausal women and men age >= 50 years with a: * Hip or vertebral (clinical or morphometric) fracture * T-score of <=-2.5 at the spine or hip * Ten-year fracture probability by FRAX of >= 3% for hip fracture or >=20% for major osteoporotic fracture. Dictated by: Chalo Camacho M.D. on 10/15/2025 at 17:58 Approved by: Chalo Camacho M.D. on 10/15/2025 at 18:01
== END ==
PROVIDERS: PCP Registered Nurse Diabetes Educator; Referring Provider Registered Nurse Diabetes Educator; Visit Provider Registered Nurse Diabetes Educator
DX: M85.89 Other specified disorders of bone density and structure, multiple sites (principal)
CPT/HCPCS: 77080

== ENCOUNTER → 2025-10-19 17:07 | Outpatient (CLI) | payer MEDICARE, OTHER, SELFPAY ==
--- NOTE | 2025-10-19 17:07 | DI.MG.S_ITS ---
MM screening mammo BI: 10/19/2025. BI-RADS: 1 CLINICAL: 70-year old female for bilateral screening mammogram. Tyrer-Cuzick lifetime risk of 7.8%. No personal or first-degree family history of breast cancer. Current reported family history of breast cancer: maternal aunt. The patient had a prior right breast biopsy. PRIOR EXAMS 09/30/2024, 09/28/2023, 09/22/2022, 08/23/2021, MAMMOGRAPHY TECHNIQUE: 2D and 3D (tomosynthesis) digital mammographic views obtained, with additional images as needed for full coverage. Current study was also evaluated with a Computer Aided Detection (CAD) system. DENSITY B. There are scattered areas of fibroglandular density. MAMMOGRAPHY FINDINGS Bilateral: No suspicious mass, asymmetry, microcalcification, or other abnormality seen. IMPRESSION: * No evidence of malignancy. RECOMMENDATIONS Bilateral * Annual screening mammography. OVERALL ASSESSMENT CATEGORY BI-RADS-1: Negative. [employer] recommends annual screening mammography beginning at age 40 for women with average risk of breast cancer. ELECTRONICALLY SIGNED: Iron Bone M.D. on 10/20/2025 at 12:35:26 PM PT Interpreting Station ID: [id number]
== END ==
LOC: MAMMO 17:07
PROVIDERS: PCP Registered Nurse Diabetes Educator; Referring Provider Registered Nurse Diabetes Educator; Visit Provider Registered Nurse Diabetes Educator
DX: Z12.31 Encounter for screening mammogram for malignant neoplasm of breast (principal); Z80.3 Family history of malignant neoplasm of breast
CPT/HCPCS: 77063; 77067